=== PATIENT | female | born 1970 | race Caucasian/White ===

== ENCOUNTER → 2020-03-13 08:40 | Outpatient (BNVA) | payer OTHER, SELFPAY | PROVIDERS: Visit Provider Anesthesiology | DX: Z76.89 Persons encountering health services in other specified circumstances (principal) ==

== ENCOUNTER 2020-05-04 15:02 | Emergency (ER) | payer OTHER, SELFPAY ==
[2020-05-04 15:54] VITALS: BP 132/80; PULSE 70; RESP 16; TEMP 37.3; O2SAT 99; BMI 27.3
--- NOTE | 2020-05-04 16:59 | CT_ITS ---
EXAMINATION: CT ABDOMEN AND PELVIS WITHOUT CONTRAST CLINICAL INFORMATION: Lower abdominal pain, rule out ruptured appendix versus renal stone COMPARISON: CT of the abdomen and pelvis 05/18/2017 TECHNIQUE: Multidetector volumetric imaging was performed from the superior aspect of the liver through the pubic symphysis. Sagittal and coronal reformatted images were obtained on the technologist's workstation. This CT examination was performed using dose optimization techniques as appropriate, variously including the following: *Automated exposure control *Adjustment of mA and/or kV according to patient size (this includes techniques or standardized protocols for targeted exams where dose is matched to indication/reason for exam; i.e. extremities or head) *Use of iterative reconstruction technique DLP: 598 mGy-cm FINDINGS: LUNG BASES: The visualized lung bases are unremarkable. LIVER, GALLBLADDER, AND BILIARY TREE: The liver is normal in size, shape, and attenuation. No focal hepatic lesion or biliary ductal dilatation is present. The gallbladder is surgically absent. PANCREAS: Unremarkable. SPLEEN: Unremarkable. ADRENAL GLANDS: Unremarkable. KIDNEYS AND URETERS: The kidneys are normal in size, shape, and attenuation. No hydronephrosis, hydroureter, or calculi seen. No perinephric stranding. BLADDER: Unremarkable. GASTROINTESTINAL TRACT: The stomach and small bowel are not distended. No pericolonic inflammatory changes. Moderate amount of stool within the colon. Normal appendix. No surrounding inflammatory change in the right lower quadrant. ABDOMINAL WALL: No significant hernia is appreciated. LYMPH NODES: Normal. VASCULAR: Unremarkable. PELVIC VISCERA: There is an enlarged and irregular uterus with scattered calcifications likely secondary to fibroids. Findings are similar to the prior study. An intrauterine device is in place. OSSEOUS STRUCTURES: No acute or suspicious osseous abnormality. There are moderate degenerative changes at L5-S1. CT/CT abdomen pelvis wo con IMPRESSION: No acute intra-abdominal or intrapelvic process. Normal appendix. No evidence of bowel obstruction. Moderate amount of stool within the colon. No hydronephrosis. No renal or ureteral calculi. Enlarged fibroid uterus, similar in appearance to the prior study.
--- NOTE | 2020-05-04 17:03 | ED.ABDPAIN ---
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 Nothing makes the pain better, nothing makes the pain worse. Never had similar pain in the past. No UTI symptoms, and U no frequency, no dysuria. Normal bowel movement with no constipation, no diarrhea no blood in the stool. Related Data Previous Rx's Medication Instructions Recorded celecoxib 100 mg capsule 100 mg PO BID 30 Days #60 cap 03/13/20 Allergies Allergy/AdvReac Type Severity Reaction Status Date / Time mushroom Allergy Mild BECOMES Unverified 01/27/20 16:54 UNCONSIOUS amoxicillin [AMOXICILLIN] Allergy Unknown RASH Unverified 01/27/20 16:54 Review of Systems Review of Systems All other systems are reviewed and are negative Constitutional: Reports as per HPI and Reports no additional constitutional complaints Eyes: Reports as per HPI and Reports no additional eye complaints Reports system reviewed and no additional complaints, except as documented Cardiovascular: Reports as per HPI and Reports no additional cardiovascular complaints Respiratory: Reports as per HPI and Reports no additional respiratory complaints Gastrointestinal: Reports as per HPI and Reports no additional gastrointestinal complaints Genitourinary: Reports no additional female genitourinary complaints Musculoskeletal: Reports no additional musculoskeletal complaints Skin/Breast: Reports system reviewed and no additional complaints, except as docu Psychiatric: Reports no additional psychiatric complaints Endocrine: Reports no additional endocrine complaints Hematologic/Lymphatic: Reports no additional hematologic/lymphatic complaints Allergic/Immunologic: Reports no additional allergic/immunologic complaints Reports system reviewed and no additional complaints, except as documented and Reports Abnormal speech present Physical Exam Vital Signs: Vital Signs: Last Vital Signs Temp 99.1 F 05/04/20 15:54 Pulse 70 05/04/20 15:54 Resp 16 05/04/20 15:54 BP 132/80 05/04/20 15:54 Pulse Ox 99 05/04/20 15:54 Body Mass Index 27.3 Vital signs have been reviewed as normal and appeared to be correct. Blood pressure normal. Heart rate normal. Respiration rate normal. Temperature normal. Oxygen saturation normal. Appearance: Alert. Oriented X3. No acute distress. Head: Normal external exam. Normocephalic. Atraumatic. No Yun signs noted. No raccoon eyes noted Eyes: PERRLA. EOMI. Conjunctiva and sclera normal. Eyelids normal. ENT: EAC normal. TM's Normal. Pharynx normal. Uvula midline. Moist mucous membranes. No trismus noted. No drooling noted. No muffled voice noted. Neck: Normal inspection. Neck supple. FROM. No adenopathy. Thyroid Normal. No meningeal signs. No neck mass noted. CVS: Normal heart rate and rhythm. Heart sound normal. No murmurs noted. Pulses normal throughout. Respiratory: No respiratory distress. Painless inspiration. Breath sounds normal. No wheezes/rales/rhonchi noted. Chest nontender. No accessory muscle usage noted or decreased air movement noted. Abdomen: Soft and nontender. Bowel sounds normal in all 4 quadrants. No distention noted. No organomegaly noted. No visible injury noted. Back: No CVA tenderness. Full range of motion noted. Skin: Skin warm and dry. Normal skin color. Normal skin turgor. No rashes/lesions/lacerations noted. Extremities: No lower extremity edema. Extremities exhibit normal range of motion. Extremities nontender. Neuro: Oriented X 3. No motor deficit. No sensory deficit. Reflexes normal. MDM - Abdominal Pain MDM Narrative Medical decision making narrative: Assessment and plan. 50-year-old female came in with 3 days of abdominal pain, abdominal exam is remarkable for lower abdominal tenderness but no rebound no guarding, patient had a CT scan of the abdomen and pelvis which showed no acute intra-abdominal pathology, normal wbc's, otherwise unremarkable labs. Patient received in the emergency department 1 dose of morphine and Toradol and felt better with the medication. CT/lab finding were discussed with the patient, patient also was advised to drink plenty of fluids and follow-up with PCP. Lab Data Result diagrams: 05/04/20 17:18 05/04/20 17:18 Labs: Lab Results 05/04/20 05/04/20 05/04/20 Range/Units 17:18 17:18 17:18 WBC 7.0 (4.8-10.8) X10*3/uL RBC 3.79 L (4.20-5.50) X10*6/uL Hgb 12.3 (12.0-16.0) g/dl Hct 36.2 L (37-47) % MCV 95.5 (80-98) fL MCH 32.5 (27.0-33.0) pg MCHC 34.0 (31.0-35.0) g/dl RDW 12.2 (11.0-16.0) % Plt Count 310 (160-400) X10*3/uL MPV 10.5 (9.4-12.3) fL Immature Gran % (Auto) 0.3 (0.0-0.4) % Neut % (Auto) 61.4 (45-73) % Lymph % (Auto) 25.6 (20-40) % [place] % (Auto) 9.5 (2-11) % Eos % (Auto) 2.6 (0-4) % Baso % (Auto) 0.6 (0-2) % Lymph # (Auto) 1.8 (1.2-4.9) X10*3/uL [place] # (Auto) 0.7 (0.1-1.2) X10*3/uL Eos # (Auto) 0.2 (0.0-0.4) X10*3/uL Baso # (Auto) 0.0 (0.0-0.2) X10*3/uL Abs Immat Gran (auto) 0.02 (0.00-0.03) X10*3/uL Absolute Neuts (auto) 4.3 (2.0-8.3) X10*3/uL Absolute Nucleated RBC 0.000 (0.0-0.012) X10*3/uL Nucleated RBC % (auto) 0.0 (0.0-0.2) /100WBC Sodium 136 (135-145) mmol/L Potassium 3.5 (3.3-5.1) mmol/l Chloride 102 (96-108) mmol/L Carbon Dioxide 24 (22-29) mmol/L Anion Gap 14 (12-20) BUN 16 (9-16) mg/dL Creatinine 0.76 (0.5-1.4) mg/dL Estim Creat Clear Calc 72.8 Estimated GFR > 60 Random Glucose 94 (60-115) mg/dL Calcium 8.8 (8.4-10.2) mg/dL Total Bilirubin 0.6 (0.0-1.0) mg/dL Direct Bilirubin 0.2 (0.0-0.5) mg/dL AST 15 (5-31) U/L ALT 11 (0-31) U/L Alkaline Phosphatase 61 (39-117) U/L Total Protein 6.7 (6.5-8.0) g/dL Albumin 4.1 (3.5-5.0) g/dL Lipase 52 (8-78) U/L Urine Color Urine Appearance Urine pH (5.0-8.0) Ur Specific [place] (1.005-1.025) Urine Protein (NEG-TRACE) MG/DL Urine Glucose (UA) (NEG) MG/DL Urine Ketones (NEG) MG/DL Urine Blood (NEG) Urine Nitrite (NEG) Ur Leukocyte Esterase (NEG) Urine RBC (0) /HPF Urine WBC (0-4) /HPF Ur Squamous Epith Cells /LPF Urine Bacteria /LPF Urine Test NEGATIVE (NEGATIVE) 05/04/20 Range/Units 17:18 WBC (4.8-10.8) X10*3/uL RBC (4.20-5.50) X10*6/uL Hgb (12.0-16.0) g/dl Hct (37-47) % MCV (80-98) fL MCH (27.0-33.0) pg MCHC (31.0-35.0) g/dl RDW (11.0-16.0) % Plt Count (160-400) X10*3/uL MPV (9.4-12.3) fL Immature Gran % (Auto) (0.0-0.4) % Neut % (Auto) (45-73) % Lymph % (Auto) (20-40) % [place] % (Auto) (2-11) % Eos % (Auto) (0-4) % Baso % (Auto) (0-2) % Lymph # (Auto) (1.2-4.9) X10*3/uL [place] # (Auto) (0.1-1.2) X10*3/uL Eos # (Auto) (0.0-0.4) X10*3/uL Baso # (Auto) (0.0-0.2) X10*3/uL Abs Immat Gran (auto) (0.00-0.03) X10*3/uL Absolute Neuts (auto) (2.0-8.3) X10*3/uL Absolute Nucleated RBC (0.0-0.012) X10*3/uL Nucleated RBC % (auto) (0.0-0.2) /100WBC Sodium (135-145) mmol/L Potassium (3.3-5.1) mmol/l Chloride (96-108) mmol/L Carbon Dioxide (22-29) mmol/L Anion Gap (12-20) BUN (9-16) mg/dL Creatinine (0.5-1.4) mg/dL Estim Creat Clear Calc Estimated GFR Random Glucose (60-115) mg/dL Calcium (8.4-10.2) mg/dL Total Bilirubin (0.0-1.0) mg/dL Direct Bilirubin (0.0-0.5) mg/dL AST (5-31) U/L ALT (0-31) U/L Alkaline Phosphatase (39-117) U/L Total Protein (6.5-8.0) g/dL Albumin (3.5-5.0) g/dL Lipase (8-78) U/L Urine Color YELLOW Urine Appearance CLEAR Urine pH 6.5 (5.0-8.0) Ur Specific [place] <= 1.005 (1.005-1.025) Urine Protein NEG (NEG-TRACE) MG/DL Urine Glucose (UA) NEG (NEG) MG/DL Urine Ketones NEG (NEG) MG/DL Urine Blood TRACE (NEG) Urine Nitrite NEG (NEG) Ur Leukocyte Esterase NEG (NEG) Urine RBC 0-2 (0) /HPF Urine WBC 0 (0-4) /HPF Ur Squamous Epith Cells TRACE /LPF Urine Bacteria TRACE /LPF Urine Test (NEGATIVE) Imaging Data CT scan - abdomen: Radiologist's impression: IMPRESSION: No acute intra-abdominal or intrapelvic process. Normal appendix. No evidence of bowel obstruction. Moderate amount of stool within the colon. No hydronephrosis. No renal or ureteral calculi. Enlarged fibroid uterus, similar in appearance to the prior study. Discharge Plan Discharge Clinical Impression: Abdominal pain Qualifiers: Abdominal location: lower abdomen, unspecified Qualified Code(s): R10.30 - Lower abdominal pain, unspecified Patient Disposition: Home, Self-Care Instructions: Abdominal Pain (ED) Prescriptions: No Action celecoxib [Celebrex] 100 mg capsule 100 mg PO BID 30 Days Qty: 60 RF: 12 Referrals: Mary Ann Luke MD [Primary Care Provider] - 2 days [facility] Past Medical History Medical History Primary osteoarthritis, right shoulder Spondylosis of cervical region without myelopathy or radiculopathy Social History Social History Advance Directives: No Advance Directives Information Provided: Yes
[2020-05-04] MEDS: 0.9 % Sodium Chloride 1,000 ML 999 ML IVCONT (17:28)
[2020-05-04] MEDS: Morphine Sulfate 2 MG/ML CARTRIDGE 1 MG IVPUSH (17:29)
[2020-05-04] MEDS: Ketorolac Tromethamine 15 MG/ML VIAL IV (17:29)
[2020-05-04 17:43] LABS: Basophils Percent Auto 0.6 % (0-2); Eosinophils Absolute Auto 0.2 X10*3/uL (0.0-0.4); Eosinophils Percent Auto 2.6 % (0-4); Hematocrit 36.2 % (37-47); Hemoglobin 12.3 g/dl (12.0-16.0); Imm Gran Abs Auto 0.02 X10*3/uL (0.00-0.03); Imm Gran Pct Auto 0.3 % (0.0-0.4); Lymphocytes Absolute Auto 1.8 X10*3/uL (1.2-4.9); Lymphocytes Percent Auto 25.6 % (20-40); Mean Corpuscular Hemoglobin 32.5 pg (27.0-33.0); Mean Corpuscular Volume 95.5 fL (80-98); Mean Platelet Volume 10.5 fL (9.4-12.3); Monocytes Absolute Auto 0.7 X10*3/uL (0.1-1.2); Monocytes Percent Auto 9.5 % (2-11); Neutrophils Absolute Auto 4.3 X10*3/uL (2.0-8.3); Neutrophils Percent Auto 61.4 % (45-73); Platelet Count 310 X10*3/uL (160-400); Red Blood Count 3.79 X10*6/uL (4.20-5.50); Red Cell Distribution Width 12.2 % (11.0-16.0)
[2020-05-04 17:46] LABS: MANUAL DIFF FLAG NO
[2020-05-04 17:49] LABS: Glucose Urine UA NEG (NEG); Leukocyte Esterase Urine NEG (NEG); Nitrite Urine NEG (NEG); PH 6.5 (5.0-8.0); Specific Gravity - Urine <= 1.005 (1.005-1.025); Urine Blood TRACE (NEG); Urine Ketones NEG (NEG); Urine Protein NEG (NEG-TRACE)
[2020-05-04 17:53] LABS: Appearance Urine CLEAR; Color Urine YELLOW
[2020-05-04 17:55] LABS: UPreg QC Valid YES; Urine Pregnancy NEGATIVE (NEGATIVE)
[2020-05-04 18:01] LABS: Bacteria Urine TRACE /LPF; RBC Urine 0-2 /HPF (0); Squamous Epithelial Cell Urine TRACE /LPF; WBC Urine 0 /HPF (0-4)
[2020-05-04 18:26] LABS: Alanine Aminotransferase 11 U/L (0-31); Albumin Level 4.1 g/dL (3.5-5.0); Alkaline Phosphatase 61 U/L (39-117); Anion Gap 14 (12-20); Aspartate Amino Transferase 15 U/L (5-31); Bilirubin Direct 0.2 mg/dL (0.0-0.5); Bilirubin Total 0.6 mg/dL (0.0-1.0); Blood Urea Nitrogen 16 mg/dL (9-16); Calcium 8.8 mg/dL (8.4-10.2); Carbon Dioxide 24 mmol/L (22-29); Chloride 102 mmol/L (96-108); Creatinine Clr Calc Pharmacy 72.8; Estimated Glomerular Filt Rate > 60; Glucose Random 94 mg/dL (60-115); Lipase 52 U/L (8-78); Potassium 3.5 mmol/l (3.3-5.1); Sodium 136 mmol/L (135-145); Total Protein 6.7 g/dL (6.5-8.0)
== END 2020-05-04 19:27 | disposition home or self-care (01) ==
PROVIDERS: Emergency Provider Emergency Medicine; PCP Internal Medicine
DX: R10.30 Lower abdominal pain, unspecified (principal)
CPT/HCPCS: 36415; 74176; 80048; 80076; 81001; 81025; 83690; 85025; 96361; 96374; 96375; 99283; 99284; J1885; J2270

== ENCOUNTER → 2020-05-25 16:01 | Outpatient (BNVA) | payer OTHER, SELFPAY | PROVIDERS: PCP Internal Medicine; Visit Provider Anesthesiology | DX: Z76.89 Persons encountering health services in other specified circumstances (principal) ==

== ENCOUNTER 2020-07-18 15:33 | Outpatient (REF) | payer OTHER, SELFPAY ==
--- NOTE | ~2020-07-18 | XR_ITS ---
EXAMINATION: XR SHOULDER, RIGHT CLINICAL INFORMATION: Right shoulder pain. COMPARISON: Right shoulder radiographs dated 04/27/2009. TECHNIQUE: AP external rotation, Grashey, scapular Y, and axillary views of the right shoulder. FINDINGS: There is no acute fracture or dislocation. The acromioclavicular and glenohumeral joints are intact. A small subacromial spur is noted. The soft tissues are unremarkable. XR/XR shoulder RT min 2V IMPRESSION: Small subacromial spur without acute abnormality. No significant change.
== END 2020-07-18 15:34 | disposition home or self-care (01) ==
LOC: HO.XRAY 15:33
PROVIDERS: PCP Internal Medicine; Visit Provider Anesthesiology
DX: M19.011 Primary osteoarthritis, right shoulder (principal)
CPT/HCPCS: 73030

== ENCOUNTER → 2020-07-31 13:43 | Outpatient (BNVA) | payer OTHER, SELFPAY | PROVIDERS: PCP Internal Medicine; Visit Provider Anesthesiology ==

== ENCOUNTER 2020-08-18 19:27 | Emergency (ER) | payer OTHER, SELFPAY ==
[2020-08-18 19:40] VITALS: BP 131/91; PULSE 82; RESP 18; TEMP 36.9; O2SAT 100; BMI 28.7
[2020-08-18 20:03] LABS: MANUAL DIFF FLAG NO
[2020-08-18 20:09] LABS: Basophils Percent Auto 0.6 % (0-2); Eosinophils Absolute Auto 0.2 X10*3/uL (0.0-0.4); Eosinophils Percent Auto 2.1 % (0-4); Hematocrit 38.5 % (37-47); Hemoglobin 12.9 g/dl (12.0-16.0); Imm Gran Abs Auto 0.02 X10*3/uL (0.00-0.03); Imm Gran Pct Auto 0.3 % (0.0-0.4); Lymphocytes Absolute Auto 1.8 X10*3/uL (1.2-4.9); Lymphocytes Percent Auto 25.2 % (20-40); Mean Corpuscular HGB Conc 33.5 g/dl (31.0-35.0); Mean Corpuscular Hemoglobin 32.2 pg (27.0-33.0); Mean Platelet Volume 10.6 fL (9.4-12.3); Monocytes Absolute Auto 0.6 X10*3/uL (0.1-1.2); Neutrophils Absolute Auto 4.7 X10*3/uL (2.0-8.3); Neutrophils Percent Auto 63.8 % (45-73); Platelet Count 309 X10*3/uL (160-400); Red Blood Count 4.01 X10*6/uL (4.20-5.50); Red Cell Distribution Width 12.2 % (11.0-16.0); White Blood Count 7.3 X10*3/uL (4.8-10.8)
[2020-08-18 20:10] LABS: Glucose Urine UA NEG (NEG); Leukocyte Esterase Urine NEG (NEG); Nitrite Urine NEG (NEG); Urine Blood NEG (NEG); Urine Ketones NEG (NEG); Urine Protein NEG (NEG-TRACE)
[2020-08-18 20:11] LABS: Appearance Urine CLEAR; Color Urine YELLOW
[2020-08-18 20:30] LABS: Alanine Aminotransferase 16 U/L (0-31); Albumin Level 4.4 g/dL (3.5-5.0); Alkaline Phosphatase 79 U/L (39-117); Anion Gap 14 (12-20); Aspartate Amino Transferase 13 U/L (5-31); Bilirubin Direct 0.2 mg/dL (0.0-0.5); Bilirubin Total 0.6 mg/dL (0.0-1.0); Blood Urea Nitrogen 19 mg/dL (9-16); Calcium 9.5 mg/dL (8.4-10.2); Carbon Dioxide 25 mmol/L (22-29); Chloride 105 mmol/L (96-108); Creatinine Clr Calc Pharmacy 67.5; Estimated Glomerular Filt Rate > 60; Glucose Random 97 mg/dL (60-115); Lipase 34 U/L (8-78); Potassium 3.6 mmol/L (3.3-5.1); Sodium 140 mmol/L (135-145); Total Protein 7.2 g/dL (6.5-8.0)
[2020-08-18 21:28] VITALS: BP 128/83; PULSE 77; RESP 16; TEMP 36.8; O2SAT 100
--- NOTE | 2020-08-18 22:09 | ED.ABDPAIN ---
HPI - Abdominal Pain General Chief Complaint: Abdominal Pain Stated Complaint: epigastric pain Time Seen by Provider: 08/18/20 22:09 Source: patient and family () Mode of arrival: ambulatory History of Present Illness HPI narrative: This is a 50-year-old female who is currently being treated for GERD with omeprazole in presents with 4-5 days of epigastric discomfort associated with a bad taste in her mouth as well as nausea but denies any fevers, chills, diarrhea, urinary pain/burning/frequency. Patient states that this discomfort that she has been experiencing decreases her appetite and that when she eats it feels uncomfortable. Otherwise, she denies any melena or hematochezia. Related Data Previous Rx's Medication Instructions Recorded tizanidine 4 mg tablet 4 mg PO Q8H PRN #90 tab 07/31/20 sucralfate [Carafate] 10 ml PO BID 14 Days #280 ml 08/18/20 Allergies Allergy/AdvReac Type Severity Reaction Status Date / Time mushroom Allergy Mild BECOMES Verified 07/31/20 13:44 UNCONSIOUS amoxicillin [AMOXICILLIN] Allergy Unknown RASH Verified 07/31/20 13:44 Review of Systems Review of Systems Pertinent positives and negatives as stated in HPI 10 point review of systems is otherwise negative. Physical Exam Vital Signs: Vital Signs: Last Vital Signs Temp 98.3 F 08/18/20 21:28 Pulse 77 08/18/20 21:28 Resp 16 08/18/20 21:28 BP 128/83 08/18/20 21:28 Pulse Ox 100 08/18/20 21:28 Body Mass Index 28.7 VITAL SIGNS: Reviewed. GENERAL: Well developed, well nourished, in no acute distress. HEAD: Normocephalic/atraumatic NOSE: Nares patent bilateral OROPHARYNX: no oral lesions noted, posterior pharynx clear NECK: Supple, no adenopathy LUNGS: Normal breath sounds. SpO2<100> CARDIOVASCULAR: Regular rate and rhythm without noted murmurs ABDOMEN: Soft, mild tenderness to palpation in the epigastrium without rebound, non-distended with bowel sounds. NEUROLOGIC: Alert and oriented x 4. Course Course Course Narrative: This is a 50-year-old female with history and clinical presentation suggestive of possible ulcer/gastritis as patient states that she is compliant with her current omeprazole regimen. Patient will be provided with a GI cocktail as well as care. Here in the emergency department. Review of all investigations is otherwise negative for any acute findings such as infection or acute anemia MDM - Abdominal Pain Lab Data Result diagrams: 08/18/20 19:51 08/18/20 19:51 Labs: Lab Results 08/18/20 08/18/20 08/18/20 Range/Units 19:51 19:51 19:57 WBC 7.3 (4.8-10.8) X10*3/uL RBC 4.01 L (4.20-5.50) X10*6/uL Hgb 12.9 (12.0-16.0) g/dl Hct 38.5 (37-47) % MCV 96.0 (80-98) fL MCH 32.2 (27.0-33.0) pg MCHC 33.5 (31.0-35.0) g/dl RDW 12.2 (11.0-16.0) % Plt Count 309 (160-400) X10*3/uL MPV 10.6 (9.4-12.3) fL Immature Gran % (Auto) 0.3 (0.0-0.4) % Neut % (Auto) 63.8 (45-73) % Lymph % (Auto) 25.2 (20-40) % [place] % (Auto) 8.0 (2-11) % Eos % (Auto) 2.1 (0-4) % Baso % (Auto) 0.6 (0-2) % Lymph # (Auto) 1.8 (1.2-4.9) X10*3/uL [place] # (Auto) 0.6 (0.1-1.2) X10*3/uL Eos # (Auto) 0.2 (0.0-0.4) X10*3/uL Baso # (Auto) 0.0 (0.0-0.2) X10*3/uL Abs Immat Gran (auto) 0.02 (0.00-0.03) X10*3/uL Absolute Neuts (auto) 4.7 (2.0-8.3) X10*3/uL Absolute Nucleated RBC 0.000 (0.0-0.012) X10*3/uL Nucleated RBC % (auto) 0.0 (0.0-0.2) /100WBC Sodium 140 (135-145) mmol/L Potassium 3.6 (3.3-5.1) mmol/L Chloride 105 (96-108) mmol/L Carbon Dioxide 25 (22-29) mmol/L Anion Gap 14 (12-20) BUN 19 H (9-16) mg/dL Creatinine 0.84 (0.5-1.4) mg/dL Estim Creat Clear Calc 67.5 Estimated GFR > 60 Random Glucose 97 (60-115) mg/dL Calcium 9.5 D (8.4-10.2) mg/dL Total Bilirubin 0.6 (0.0-1.0) mg/dL Direct Bilirubin 0.2 (0.0-0.5) mg/dL AST 13 (5-31) U/L ALT 16 (0-31) U/L Alkaline Phosphatase 79 D (39-117) U/L Total Protein 7.2 (6.5-8.0) g/dL Albumin 4.4 (3.5-5.0) g/dL Lipase 34 (8-78) U/L Urine Color YELLOW Urine Appearance CLEAR Urine pH 7.0 (5.0-8.0) Ur Specific [place] 1.010 (1.005-1.025) Urine Protein NEG (NEG-TRACE) MG/DL Urine Glucose (UA) NEG (NEG) MG/DL Urine Ketones NEG (NEG) MG/DL Urine Blood NEG (NEG) Urine Nitrite NEG (NEG) Ur Leukocyte Esterase NEG (NEG) Discharge Plan Discharge Clinical Impression: Epigastric abdominal pain Patient Disposition: Home, Self-Care Instructions: Gastritis (ED), Diet for Stomach Ulcers and Gastritis (ED) Additional Instructions: Resume all home medications as prescribed. Please return to the emergency department should you experience acute worsening of your symptoms. Prescriptions: New sucralfate [Carafate] 100 mg/mL suspension 10 ml PO BID 14 Days Qty: 280 RF: 0 No Action tizanidine 4 mg tablet 4 mg PO Q8H PRN (Reason: muscle spasticity) Qty: 90 RF: 8 Referrals: Mary Ann Luke MD [Primary Care Provider] - 2 days (Re-evaluate after being seen in the emergency department with suspected gastritis versus possible developing ulcer. Patient was started on Carafate and stated she is already taking omeprazole.) [facility] Past Medical History Source: nursing notes reviewed Medical History Spondylosis of cervical region without myelopathy or radiculopathy Social History Social History Alcohol intake: never Smoking Status: Never smoker Use of substances other than those prescribed or required for medical reasons: No Advance Directives: No Advance Directives Information Provided: Yes
[2020-08-18] MEDS: Sucralfate Oral Suspension 1 GM/10 ML ORAL.SUSP PO (22:30)
[2020-08-18] MEDS: Lidocaine HCl Viscous 2 % 15 ML SOLUTION 10 ML MUCOUS MEM (22:32)
[2020-08-18] MEDS: Magnesium Hydrox/Alum Hydrox 30 ML ORAL.SUSP PO (22:32)
== END 2020-08-18 23:08 | disposition home or self-care (01) ==
PROVIDERS: Emergency Provider Student in an Organized Health Care Education/Training Program; PCP Internal Medicine
DX: R10.13 Epigastric pain (principal); K21.9 Gastro-esophageal reflux disease without esophagitis
CPT/HCPCS: 36415; 80048; 80076; 81003; 83690; 85025; 99283; 99284

== ENCOUNTER 2020-08-28 11:46 | Emergency (ER) | payer OTHER, SELFPAY ==
[2020-08-28 11:58] VITALS: BP 127/82; PULSE 72; RESP 16; TEMP 36.3; O2SAT 99; BMI 28.9
--- NOTE | 2020-08-28 12:16 | ED_ITS ---
HPI - Extremity Injury (Lower) General Chief Complaint: Extremity Injury, Lower Stated Complaint: R KNEE PAIN Time Seen by Provider: 08/28/20 12:07 Source: patient Mode of arrival: ambulatory History of Present Illness HPI Narrative: 50-year-old female with a past medical history of cervical spondylosis, arthritis presenting to the ED complaining of right knee pain since last night s/p moving wrong in bed. Reports twisting injury, denies direct injury/trauma or falls. Reports pain radiates up to his thigh. Denies numbness, tingling, weakness, back pain, fever, chills. Reports acute on chronic knee pain in which she receives scheduled cortisone injections complaint: knee injury Related Data Previous Rx's Medication Instructions Recorded tizanidine 4 mg tablet 4 mg PO Q8H PRN #90 tab 07/31/20 sucralfate [Carafate] 10 ml PO BID 14 Days #280 ml 08/18/20 acetaminophen [Tylenol Extra 500 mg PO Q6H PRN #20 tab 08/28/20 Strength] cyclobenzaprine 5 mg PO Q8H PRN 5 Days #14 tab 08/28/20 lidocaine [Lidoderm] 1 patch TOPICAL DAILY PRN #30 ea 08/28/20 MDD remove after 12 hours naproxen 500 mg PO BID PRN 10 Days #20 tab 08/28/20 Allergies Allergy/AdvReac Type Severity Reaction Status Date / Time mushroom Allergy Mild BECOMES Verified 08/28/20 12:04 UNCONSIOUS amoxicillin [AMOXICILLIN] Allergy Unknown RASH Verified 08/28/20 12:04 Review of Systems Review of Systems: Constitutional: No Fever, No Chills Musculoskeletal: + joint pain, No Myalgias, No Joint Swelling Skin: No Skin Lesions, No rash Neuro: No Weakness, No Numbness, No Paresthesias Yes all other systems are reviewed and are negative [facility] Past Medical History Attestation statement: The following information was validated with the patient. Medical History Spondylosis of cervical region without myelopathy or radiculopathy Social History Social History Alcohol intake: never Smoking Status: Never smoker Advance Directives: No Advance Directives Information Provided: No Physical Exam Vital Signs: Vital Signs: Last Vital Signs Temp 97.3 F 08/28/20 11:58 Pulse 72 08/28/20 11:58 Resp 16 08/28/20 11:58 BP 127/82 08/28/20 11:58 Pulse Ox 99 08/28/20 11:58 Body Mass Index 28.9 Const: General: cooperative and healthy appearing Orientation/cons ciousness: patient oriented x3 Limitations: no limitations HENMT: Head: Yes normal to inspection Ears: hearing grossly normal bilaterally General nose exam: Normal external nose present Face and sinus: Yes normal facial exam Eyes: General: appearance normal, both eyes and all related structures EOM: EOMs intact bilaterally Neck: Neck: Yes no meningeal signs Resp: Effort & Inspection: normal respiratory effort Cardio: Rate: regular rate Peripheral pulses: dorsalis pedis present GI: Inspection: Yes normal to inspection Back/Spine/Pelvis: Other: No midline thoracic/lumbar spinous tenderness/ stepoffs Skin: Rashes: no rashes Wounds: no wounds Neuro: General: patient oriented x3, tone normal, moves all extremities and no meningeal signs Extrem: Other: Right knee with slight swelling, +ttp to medial aspect. no deformity/ecchymosis or erythema. Pain with passive ROM. NV intact distally MDM - Extremity Injury (Lower) MDM Narrative Medical decision making narrative: On exam VSS, NAD, well appearing, PE as above. Likely ligamentous/tendon injury or MSK pain. Low concern for fracture/dislocation No known injury trauma, no need for x-ray at this time Medical Records Attestation: I reviewed the patient's medical records. Discharge Plan Discharge Clinical Impression: Knee pain Patient Disposition: Home, Self-Care Instructions: Knee Pain (ED) Additional Instructions: You likely have a ligamental/tendon injury Your pain is likely musculoskeletal Flexeril is a muscle relaxer, take at night as it makes you drowsy, do not drive, drink alcohol, or operate machinery while taking it Naproxen as an anti-inflammatory / pain medication, take with food Lidoderm patches are numbing patches, apply to painful area In addition take Tylenol at home If symptoms persist or worsen, pain becomes unbearable, you developed urinary retention or incontinence, or weakness return to the ED Follow-up with her doctor and Orthopedics as needed Prescriptions: New acetaminophen [Tylenol Extra Strength] 500 mg tablet 500 mg PO Q6H PRN (Reason: pain or fever) Qty: 20 RF: 0 lidocaine [Lidoderm] 5 % adhesive patch,medicated 1 patch topical DAILY MDD remove after 12 hours PRN (Reason: pain) Qty: 30 RF: 0 naproxen 500 mg tablet 500 mg PO BID PRN (Reason: pain) 10 Days Qty: 20 RF: 0 cyclobenzaprine 5 mg tablet 5 mg PO Q8H PRN (Reason: pain (scale score 7-10)) 5 Days Qty: 14 RF: 0 No Action sucralfate [Carafate] 100 mg/mL suspension 10 ml PO BID 14 Days Qty: 280 RF: 0 tizanidine 4 mg tablet 4 mg PO Q8H PRN (Reason: muscle spasticity) Qty: 90 RF: 8 Referrals: Jose Luis Arnold MD [Physician] - 1 week
[2020-08-28] MEDS: Ketorolac Tromethamine 15 MG/ML VIAL IM (12:31)
[2020-08-28] MEDS: Cyclobenzaprine HCl 5 MG TABLET PO (12:31)
== END 2020-08-28 13:21 | disposition home or self-care (01) ==
PROVIDERS: Emergency Provider Emergency Medicine
DX: M25.561 Pain in right knee (principal); Z79.899 Other long term (current) drug therapy
CPT/HCPCS: 96372; 99284; J1885

== ENCOUNTER → 2020-09-29 13:28 | Day surgery (SDC) | payer OTHER, SELFPAY ==
--- NOTE | 2020-09-27 12:37 | P.CONAN_ITS ---
HPI - Anesthesia Eval Consult details Narrative: 50yo F for Bilateral C4-C5-C6 Medial Branch Blocks PMFSH Active Problems Active Problems: All Active Problems (Updated 09/25/20 @ 10:56 by Crystal Willis ) Spondylosis of cervical region without myelopathy or radiculopathy (Acute) Past Medical History Medical History (Updated 09/25/20 @ 10:56 by Crystal Willis) Anxiety Depression Fibromyalgia GERD (gastroesophageal reflux disease) HTN (hypertension) Hypothyroid Migraine headache Spondylosis of cervical region without myelopathy or radiculopathy Tension headache Social History Social History Alcohol intake: never Smoking Status: Never smoker Advance Directives: No Advance Directives Information Provided: No Patient : No Meds Allergies Allergy/AdvReac Type Severity Reaction Status Date / Time mushroom Allergy Mild BECOMES Verified 09/25/20 10:47 UNCONSIOUS amoxicillin [AMOXICILLIN] Allergy Unknown RASH Verified 09/25/20 10:47 Home Medications Medication Instructions Recorded Confirmed Last Taken Type cyanocobalamin (vitamin B-12) 1 tab PO DAILY 09/25/20 09/25/20 Unknown History cyclosporine [Restasis] 1 drp OPHTHALMIC (EYE) BID 09/25/20 09/25/20 Unknown History fluoxetine 10 mg PO Q OTHER DAY 09/25/20 09/25/20 Unknown History levothyroxine 1 tab PO DAILY 09/25/20 09/25/20 Unknown History lisinopril-hydrochlorothiazide 1 tab PO DAILY 09/25/20 09/25/20 Unknown History lorazepam [Ativan] 1 - 2 tab PO DAILY PRN 09/25/20 09/25/20 Unknown History omeprazole 1 tab PO BID 09/25/20 09/25/20 Unknown History ondansetron HCl 1 tab PO Q8H PRN 09/25/20 09/25/20 Unknown History sertraline [Zoloft] 1 tab PO BEDTIME 09/25/20 09/25/20 Unknown History sumatriptan succinate 1 tab PO DAILY PRN 09/25/20 09/25/20 Unknown History topiramate 1 tab PO BEDTIME 09/25/20 09/25/20 Unknown History Exam Exam Date and Time: September 27, 2020 1237 Pertinent Lab Results Pertinent Lab Results: Laboratory Tests 04/09/21 04/09/21 19:51 19:51 WBC 7.3 Hgb 12.9 Hct 38.5 Plt Count 309 Sodium 140 Potassium 3.6 Chloride 105 Carbon Dioxide 25 BUN 19 H Creatinine 0.84 Assessment and Plan Assessment Anesthesia Assessment: Chart Reviewed
[2020-09-29 13:58] VITALS: BMI 27.9
--- NOTE | 2020-09-29 14:02 | P.BOP_ITS ---
Brief Operative Note Surgeon: Samuel Liao MD Was an Oyster Tonger used for this Procedure?: No
--- NOTE | 2020-09-29 14:02 | PM.OP ---
Brief Operative Note Surgeon: Samuel Liao MD Was an Golf Course Designer used for this Procedure?: No
--- NOTE | 2020-09-29 14:02 | W.PM.OPN ---
Operative Note Operative Note Date of Service: 09/29/20
--- NOTE | 2020-09-29 14:03 | MHC.SHP ---
Pre-Procedural Eval Section A The patient is an INPATIENT: No Changes since office visit: Yes Patient answered all questions The History & Physical has been completed within 30 days and I have reviewed it.: No Section B Chief Complaint: Spondylosis of cervical region Details of Present Illness: as above Relevant Family History (Specify if Yes): No Relevant Social History: None Present Medications: see Short Stay Collaborative assessment Medical History: No relevant PMH History of Previous Operations: No relevant previous surgery Allergies: Allergies Allergy/AdvReac Type Severity Reaction Status Date / Time mushroom Allergy Mild BECOMES Verified 09/25/20 10:47 UNCONSIOUS amoxicillin [AMOXICILLIN] Allergy Unknown RASH Verified 09/25/20 10:47 Review of Systems Sugical H&P ROS: Negative: Constitution, Cardiovascular, Respiratory, Neurological, Psychiatric, Hem-Onc, Allergic/Immunologic, Gastrointestinal, Genitourinary, Musculoskeletal, Integumentary, Endocrine and Eyes/Ears/Nose/Throat Exam Surgical H&P Exam: Normal: HEENT, Normal: Heart, Normal: Lungs, Normal: Extremities, Normal: Abdomen, Normal: Skin and Normal: Neurological Plan Diagnosis/Plan: Unchanged I have reviewed the history and physical and performed a pertinent physical examination on my patient. No changes have occurred unless specified.
[2020-09-29 14:13] VITALS: BP 128/71; PULSE 76; RESP 16; TEMP 37.2; O2SAT 100
--- NOTE | 2020-09-29 14:30 | P.CONAN_ITS ---
[facility] Active Problems Active Problems: All Active Problems (Updated 09/25/20 @ 10:56 by Crystal spann) Spondylosis of cervical region without myelopathy or radiculopathy (Acute) Past Medical History Medical History Anxiety Depression Fibromyalgia GERD (gastroesophageal reflux disease) HTN (hypertension) Hypothyroid Migraine headache Spondylosis of cervical region without myelopathy or radiculopathy Tension headache Social History Social History Alcohol intake: never Smoking Status: Never smoker Use of substances other than those prescribed or required for medical reasons: No Are you DNR?: No Advance Directives: No Advance Directives Information Provided: Yes Meds Allergies Allergy/AdvReac Type Severity Reaction Status Date / Time mushroom Allergy Mild BECOMES Verified 09/25/20 10:47 UNCONSIOUS amoxicillin [AMOXICILLIN] Allergy Unknown RASH Verified 09/25/20 10:47 Active Medications: Current Medications Generic Name Dose Route Start Last Admin Trade Name Antony PRN Reason Stop Dose Admin Lactated Ringer's 1,000 mls @ 100 mls/hr 09/29/20 14:00 Lr IVCONT .Q10H KRISHNA Home Medications Medication Instructions Recorded Confirmed Last Taken Type cyanocobalamin (vitamin B-12) 1 tab PO DAILY 09/25/20 09/25/20 Unknown History cyclosporine [Restasis] 1 drp OPHTHALMIC (EYE) BID 09/25/20 09/25/20 Unknown History fluoxetine 10 mg PO Q OTHER DAY 09/25/20 09/25/20 Unknown History levothyroxine 1 tab PO DAILY 09/25/20 09/25/20 09/29/20 History lisinopril-hydrochlorothiazide 1 tab PO DAILY 09/25/20 09/25/20 Unknown History lorazepam [Ativan] 1 - 2 tab PO DAILY PRN 09/25/20 09/25/20 09/29/20 History omeprazole 1 tab PO BID 09/25/20 09/25/20 09/29/20 History ondansetron HCl 1 tab PO Q8H PRN 09/25/20 09/25/20 Unknown History sertraline [Zoloft] 1 tab PO BEDTIME 09/25/20 09/25/20 09/29/20 History sumatriptan succinate 1 tab PO DAILY PRN 09/25/20 09/25/20 Unknown History topiramate 1 tab PO BEDTIME 09/25/20 09/25/20 09/29/20 History Exam Exam Date and Time: September 29, 2020 1430 Height,Weight and Vital Signs: Height 5 ft 1 in Weight 67.132 kg Last Vital Signs Temp 98.9 F 09/29/20 14:13 Pulse 76 09/29/20 14:13 Resp 16 09/29/20 14:13 BP 128/71 09/29/20 14:13 Pulse Ox 100 09/29/20 14:13 Airway Mallampati Class: II TM Dist: >3cm Neck ROM: Full Heart: RRR Lungs: CTA
--- NOTE | 2020-09-29 14:37 | PC.NURSE ---
Patients intake completed using [employer] (Bud # [id number]) due to language barrier, requested language Yoruba. Patient became increasingly anxious throughout intake and began crying and holding head. Patient unsure about signing surgical consent and very nervous for procedure. All questions answered at length. Dr. Liao called to bedside and also spoke to patient via remote sensing advisor phone at length about risks and benefits of surgery. Patient decided against surgery, stating that this was not the right time for her. Patient left [facility]SS preop, 1440.
== END ==
PROVIDERS: Visit Provider Anesthesiology
DX: M47.812 Spondylosis without myelopathy or radiculopathy, cervical region (principal); Z53.8 Procedure and treatment not carried out for other reasons
CPT/HCPCS: J2250; J3010; J3300; Q9967

== ENCOUNTER → 2020-11-01 13:01 | Outpatient (BNVA) | payer OTHER, SELFPAY | PROVIDERS: Visit Provider Anesthesiology ==

== ENCOUNTER 2021-01-20 16:33 | Emergency (ER) | payer OTHER, SELFPAY ==
[2021-01-20 19:44] VITALS: BP 119/64; PULSE 83; RESP 18; TEMP 36.9; O2SAT 98; BMI 28.5
== END 2021-01-20 21:00 | disposition left against medical advice (07) ==
PROVIDERS: Emergency Provider Emergency Medicine; PCP Internal Medicine
DX: R10.9 Unspecified abdominal pain (principal)
CPT/HCPCS: 99281; 99282

== ENCOUNTER 2021-01-26 18:07 | Emergency (ER) | payer OTHER, SELFPAY ==
--- NOTE | ~2021-01-26 | CT_ITS ---
EXAMINATION: CT ABDOMEN AND PELVIS WITHOUT CONTRAST CLINICAL INFORMATION: Pain. Concern for colitis. COMPARISON: CT scan abdomen pelvis May 04, 2020 TECHNIQUE: Multidetector volumetric imaging was performed from the superior aspect of the liver through the pubic symphysis. Sagittal and coronal reformatted images were obtained on the technologist's workstation. This CT examination was performed using dose optimization techniques as appropriate, variously including the following: *Automated exposure control *Adjustment of mA and/or kV according to patient size (this includes techniques or standardized protocols for targeted exams where dose is matched to indication/reason for exam; i.e. extremities or head) *Use of iterative reconstruction technique DLP: 545 mGy-cm FINDINGS: LUNG BASES: The visualized lung bases are unremarkable. LIVER, GALLBLADDER, AND BILIARY TREE: The liver is normal in size, shape, and attenuation. No focal hepatic lesion or biliary ductal dilatation is present. Status post cholecystectomy PANCREAS: Unremarkable. SPLEEN: Unremarkable. ADRENAL GLANDS: Unremarkable. KIDNEYS AND URETERS: The kidneys are normal in size, shape, and attenuation. No hydronephrosis, hydroureter, or calculi seen. No perinephric stranding. BLADDER: Unremarkable. GASTROINTESTINAL TRACT: The small and large bowel are unremarkable. The appendix is unremarkable. ABDOMINAL WALL: No significant hernia is appreciated. LYMPH NODES: Normal. VASCULAR: Unremarkable. PELVIC VISCERA: Uterus is lobular and enlarged due to multiple fibroids. There are coarse calcifications associated with a fibroid at the fundus. IUD in the endometrial cavity. No adnexal abnormality. OSSEOUS STRUCTURES: Vacuum disc changes and vertebral endplate spur at lumbosacral junction. CT/CT abdomen pelvis wo con IMPRESSION: 1. No acute abnormality CT scan abdomen pelvis. 2. Enlarged fibroid uterus. IUD in endometrial cavity.
[2021-01-26 19:49] VITALS: BP 120/83; PULSE 74; RESP 16; TEMP 36.1; O2SAT 99; BMI 28.3
[2021-01-26 20:00] VITALS: BP 122/81; PULSE 60; RESP 16; TEMP 36.8; O2SAT 99
[2021-01-26 20:41] LABS: MANUAL DIFF FLAG NO
[2021-01-26 20:42] LABS: Basophils Percent Auto 0.5 % (0-2); Eosinophils Absolute Auto 0.2 X10*3/uL (0.0-0.4); Eosinophils Percent Auto 1.7 % (0-4); Hemoglobin 12.3 g/dl (12.0-16.0); Imm Gran Abs Auto 0.03 X10*3/uL (0.00-0.03); Imm Gran Pct Auto 0.3 % (0.0-0.4); Lymphocytes Absolute Auto 1.9 X10*3/uL (1.2-4.9); Lymphocytes Percent Auto 21.3 % (20-40); Mean Corpuscular HGB Conc 35.1 g/dl (31.0-35.0); Mean Corpuscular Hemoglobin 33.4 pg (27.0-33.0); Mean Corpuscular Volume 95.1 fL (80-98); Monocytes Absolute Auto 0.8 X10*3/uL (0.1-1.2); Monocytes Percent Auto 9.6 % (2-11); Neutrophils Absolute Auto 5.9 X10*3/uL (2.0-8.3); Neutrophils Percent Auto 66.6 % (45-73); Platelet Count 273 X10*3/uL (160-400); Red Blood Count 3.68 X10*6/uL (4.20-5.50); White Blood Count 8.8 X10*3/uL (4.8-10.8)
[2021-01-26 21:00] LABS: Alanine Aminotransferase 16 U/L (0-31); Alkaline Phosphatase 57 U/L (39-117); Aspartate Amino Transferase 15 U/L (5-31); Bilirubin Direct 0.2 mg/dL (0.0-0.5); Bilirubin Total 0.6 mg/dL (0.0-1.0); Lipase 34 U/L (8-78); Total Protein 6.3 g/dL (6.5-8.0)
[2021-01-26 21:01] LABS: Alanine Aminotransferase 16 U/L (0-31); Alkaline Phosphatase 57 U/L (39-117); Anion Gap 10 (12-20); Appearance Urine CLEAR; Aspartate Amino Transferase 14 U/L (5-31); Bilirubin Total 0.6 mg/dL (0.0-1.0); Blood Urea Nitrogen 15 mg/dL (9-16); Calcium 9.2 mg/dL (8.4-10.2); Carbon Dioxide 25 mmol/L (22-29); Chloride 106 mmol/L (96-108); Color Urine YELLOW; Creatinine Clr Calc Pharmacy 75.1; Estimated Glomerular Filt Rate > 60; Glucose Random 103 mg/dL (60-115); Glucose Urine UA NEG (NEG); Leukocyte Esterase Urine NEG (NEG); Nitrite Urine NEG (NEG); Sodium 138 mmol/L (135-145); Specific Gravity - Urine 1.015 (1.005-1.025); Total Protein 6.3 g/dL (6.5-8.0); UACC Culture Trigger NO; Urine Blood 1+ (NEG); Urine Ketones NEG (NEG); Urine Protein NEG (NEG-TRACE)
[2021-01-26 21:32] LABS: Squamous Epithelial Cell Urine 1+ /LPF
--- NOTE | 2021-01-26 21:33 | ED_ITS ---
HPI - Abdominal Pain General Chief Complaint: Abdominal Pain Stated Complaint: constipation Time Seen by Provider: 01/26/21 21:32 Source: patient and family Mode of arrival: ambulatory Limitations: no limitations History of Present Illness HPI narrative: 50-year-old female with history of chronic abdominal pain pres ented with acute on chronic abdominal pain started since yesterday, pain is chronic but worsening since yesterday, patient has constant associated with nausea and vomiting and nonbloody watery diarrhea, patient describes pain as mild diffuse abdominal pain, no urinary symptoms, no fever, no chills. Patient with a history of cholecystectomy done at [facility] few years ago. Patient also has been evaluated for chronic abdominal pain by reproducer had multiple colonoscopy and upper endoscopy reportedly was unremarkable. Related Data Home Medications Medication Instructions Recorded Confirmed cyanocobalamin (vitamin B-12) 1 tab PO DAILY 09/25/20 09/25/20 1,000 mcg tablet cyclosporine 0.05 % eye drops in a 1 drp OPHTHALMIC (EYE) BID 09/25/20 09/25/20 dropperette (Restasis) fluoxetine 10 mg capsule 10 mg PO Q OTHER DAY 09/25/20 09/25/20 levothyroxine 75 mcg tablet 1 tab PO DAILY 09/25/20 09/25/20 lisinopril 10 1 tab PO DAILY 09/25/20 09/25/20 mg-hydrochlorothiazide 12.5 mg tablet lorazepam 0.5 mg tablet (Ativan) 1 - 2 tab PO DAILY PRN 09/25/20 09/25/20 omeprazole 20 mg tablet,delayed 1 tab PO BID 09/25/20 09/25/20 release ondansetron HCl 4 mg tablet 1 tab PO Q8H PRN 09/25/20 09/25/20 sertraline 25 mg tablet (Zoloft) 1 tab PO BEDTIME 09/25/20 09/25/20 sumatriptan succinate 50 mg tablet 1 tab PO DAILY PRN 09/25/20 09/25/20 topiramate 25 mg tablet 1 tab PO BEDTIME 09/25/20 09/25/20 Previous Rx's Medication Instructions Recorded tizanidine 4 mg tablet 4 mg PO Q8H PRN #90 tab 07/31/20 sucralfate 100 mg/mL oral 10 ml PO BID 14 Days #280 ml 04/09/21 suspension (Carafate) acetaminophen 500 mg tablet 500 mg PO Q6H PRN #20 tab 08/28/20 (Tylenol Extra Strength) cyclobenzaprine 5 mg tablet 5 mg PO Q8H PRN 5 Days #14 tab 08/28/20 lidocaine 5 % topical patch 1 patch TOPICAL DAILY PRN #30 ea 08/28/20 (Lidoderm) MDD remove after 12 hours naproxen 500 mg tablet 500 mg PO BID PRN 10 Days #20 tab 08/28/20 Allergies Allergy/AdvReac Type Severity Reaction Status Date / Time mushroom Allergy Mild BECOMES Verified 11/01/20 13:07 UNCONSIOUS amoxicillin [AMOXICILLIN] Allergy Unknown RASH Verified 11/01/20 13:07 Review of Systems Review of Systems All other systems are reviewed and are negative Constitutional: Reports as per HPI and Reports no additional constitutional complaints Eyes: Reports as per HPI and Reports no additional eye complaints Reports system reviewed and no additional complaints, except as documented Cardiovascular: Reports as per HPI and Reports no additional cardiovascular complaints Respiratory: Reports as per HPI and Reports no additional respiratory complaints Gastrointestinal: Reports as per HPI and Reports no additional gastrointestinal complaints Genitourinary: Reports no additional female genitourinary complaints Musculoskeletal: Reports no additional musculoskeletal complaints Skin/Breast: Reports system reviewed and no additional complaints, except as docu Psychiatric: Reports no additional psychiatric complaints Endocrine: Reports no additional endocrine complaints Hematologic/Lymphatic: Reports no additional hematologic/lymphatic complaints Allergic/Immunologic: Reports no additional allergic/immunologic complaints Reports system reviewed and no additional complaints, except as documented and Reports Abnormal speech present Physical Exam Vital Signs: Vital Signs: Last Vital Signs Temp 99.1 F 01/26/21 22:00 Pulse 83 01/26/21 22:00 Resp 16 01/26/21 22:00 BP 130/98 H 01/26/21 22:00 Pulse Ox 99 01/26/21 22:00 Body Mass Index 28.3 Vital signs have been reviewed as appeared to be correct. Blood pressure normal. Heart rate normal. Respiration rate normal. Temperature normal. Oxygen saturation normal. Appearance: Alert. Oriented X3. No acute distress. Head: Normal external exam. Normocephalic. Atraumatic. No Yun signs noted. No raccoon eyes noted Eyes: PERRLA. EOMI. Conjunctiva and sclera normal. Eyelids normal. ENT: TM's Normal. Pharynx normal. Uvula midline. Moist mucous membranes. No trismus noted. No drooling noted. No muffled voice noted. Neck: Normal inspection. Neck supple. FROM. No adenopathy. Thyroid Normal. No meningeal signs. No neck mass noted. CVS: Normal heart rate and rhythm. Heart sound normal. No murmurs noted. Pulses normal throughout. Respiratory: No respiratory distress. Painless inspiration. Breath sounds normal. No wheezes/rales/rhonchi noted. Chest nontender. No accessory muscle usage noted or decreased air movement noted. Abdomen: Soft, mild epigastric tenderness, no rebound, no guarding. Bowel sounds normal in all 4 quadrants. No distention noted. No organomegaly noted. No visible injury noted. Back: No CVA tenderness. Full range of motion noted. Skin: Skin warm and dry. Normal skin color. Normal skin turgor. No rashes/lesions/lacerations noted. Extremities: No lower extremity edema. Extremities exhibit normal range of motion. Extremities nontender. Neuro: Oriented X 3. Cranial nerve exam: II-XII are grossly intact No motor deficit. No sensory deficit. Reflexes normal. Course Course Course Narrative: Assessment and plan. 50-year-old female came in with acute on chronic abdominal pain, patient has been followed by reproducer had workup in the past for her symptoms and reportedly by the patient everything was fine, patient's symptoms improved, patient had a workup for abdominal pain in the emergency department which was unremarkable, patient is to tolerate p.o. intake. MDM - Abdominal Pain Lab Data Attestation: I reviewed the patient's lab results. Result diagrams: 01/26/21 20:30 01/26/21 20:28 Labs: Lab Results 01/26/21 01/26/21 01/26/21 Range/Units 20:28 20:28 20:28 WBC (4.8-10.8) X10*3/uL RBC (4.20-5.50) X10*6/uL Hgb (12.0-16.0) g/dl Hct (37-47) % MCV (80-98) fL MCH (27.0-33.0) pg MCHC (31.0-35.0) g/dl RDW (11.0-16.0) % Plt Count (160-400) X10*3/uL MPV (9.4-12.3) fL Immature Gran % (Auto) (0.0-0.4) % Neut % (Auto) (45-73) % Lymph % (Auto) (20-40) % [place] % (Auto) (2-11) % Eos % (Auto) (0-4) % Baso % (Auto) (0-2) % Lymph # (Auto) (1.2-4.9) X10*3/uL [place] # (Auto) (0.1-1.2) X10*3/uL Eos # (Auto) (0.0-0.4) X10*3/uL Baso # (Auto) (0.0-0.2) X10*3/uL Abs Immat Gran (auto) (0.00-0.03) X10*3/uL Absolute Neuts (auto) (2.0-8.3) X10*3/uL Absolute Nucleated RBC (0.0-0.012) X10*3/uL Nucleated RBC % (auto) (0.0-0.2) /100WBC Sodium 138 (135-145) mmol/L Potassium 3.0 L (3.3-5.1) mmol/L Chloride 106 (96-108) mmol/L Carbon Dioxide 25 (22-29) mmol/L Anion Gap 10 L (12-20) BUN 15 (9-16) mg/dL Creatinine 0.75 (0.5-1.4) mg/dL Estim Creat Clear Calc 75.1 Estimated GFR > 60 Random Glucose 103 (60-115) mg/dL Calcium 9.2 (8.4-10.2) mg/dL Total Bilirubin 0.6 0.6 (0.0-1.0) mg/dL Direct Bilirubin 0.2 (0.0-0.5) mg/dL AST 14 15 (5-31) U/L ALT 16 16 (0-31) U/L Alkaline Phosphatase 57 D 57 (39-117) U/L Total Protein 6.3 L 6.3 L (6.5-8.0) g/dL Albumin 4.0 4.0 (3.5-5.0) g/dL Lipase 34 (8-78) U/L Urine Color YELLOW Urine Appearance CLEAR Urine pH 7.0 (5.0-8.0) Ur Specific [place] 1.015 (1.005-1.025) Urine Protein NEG (NEG-TRACE) MG/DL Urine Glucose (UA) NEG (NEG) MG/DL Urine Ketones NEG (NEG) MG/DL Urine Blood 1+ H (NEG) Urine Nitrite NEG (NEG) Ur Leukocyte Esterase NEG (NEG) Urine RBC 1-4 (0) /HPF Urine WBC 0-2 (0-4) /HPF Ur Squamous Epith Cells 1+ /LPF Urine Bacteria 1+ /LPF 01/26/21 Range/Units 20:30 WBC 8.8 (4.8-10.8) X10*3/uL RBC 3.68 L (4.20-5.50) X10*6/uL Hgb 12.3 (12.0-16.0) g/dl Hct 35.0 L (37-47) % MCV 95.1 (80-98) fL MCH 33.4 H (27.0-33.0) pg MCHC 35.1 H (31.0-35.0) g/dl RDW 13.0 (11.0-16.0) % Plt Count 273 (160-400) X10*3/uL MPV 11.0 (9.4-12.3) fL Immature Gran % (Auto) 0.3 (0.0-0.4) % Neut % (Auto) 66.6 (45-73) % Lymph % (Auto) 21.3 (20-40) % [place] % (Auto) 9.6 (2-11) % Eos % (Auto) 1.7 (0-4) % Baso % (Auto) 0.5 (0-2) % Lymph # (Auto) 1.9 (1.2-4.9) X10*3/uL [place] # (Auto) 0.8 (0.1-1.2) X10*3/uL Eos # (Auto) 0.2 (0.0-0.4) X10*3/uL Baso # (Auto) 0.0 (0.0-0.2) X10*3/uL Abs Immat Gran (auto) 0.03 (0.00-0.03) X10*3/uL Absolute Neuts (auto) 5.9 (2.0-8.3) X10*3/uL Absolute Nucleated RBC 0.000 (0.0-0.012) X10*3/uL Nucleated RBC % (auto) 0.0 (0.0-0.2) /100WBC Sodium (135-145) mmol/L Potassium (3.3-5.1) mmol/L Chloride (96-108) mmol/L Carbon Dioxide (22-29) mmol/L Anion Gap (12-20) BUN (9-16) mg/dL Creatinine (0.5-1.4) mg/dL Estim Creat Clear Calc Estimated GFR Random Glucose (60-115) mg/dL Calcium (8.4-10.2) mg/dL Total Bilirubin (0.0-1.0) mg/dL Direct Bilirubin (0.0-0.5) mg/dL AST (5-31) U/L ALT (0-31) U/L Alkaline Phosphatase (39-117) U/L Total Protein (6.5-8.0) g/dL Albumin (3.5-5.0) g/dL Lipase (8-78) U/L Urine Color Urine Appearance Urine pH (5.0-8.0) Ur Specific [place] (1.005-1.025) Urine Protein (NEG-TRACE) MG/DL Urine Glucose (UA) (NEG) MG/DL Urine Ketones (NEG) MG/DL Urine Blood (NEG) Urine Nitrite (NEG) Ur Leukocyte Esterase (NEG) Urine RBC (0) /HPF Urine WBC (0-4) /HPF Ur Squamous Epith Cells /LPF Urine Bacteria /LPF Imaging Data CT scan - abdomen: Radiologist's impression: 1. No acute abnormality CT scan abdomen pelvis. 2. Enlarged fibroid uterus. IUD in endometrial cavity. Discharge Plan Discharge Clinical Impression: Fibroid Abdominal pain Qualifiers: Abdominal location: unspecified location Qualified Code(s): R10.9 - Unspecified abdominal pain Patient Disposition: Home, Self-Care Instructions: Abdominal Pain (ED) Prescriptions: No Action ondansetron HCl 4 mg tablet 1 tab PO Q8H PRN (Reason: nausea) RF: 0 sumatriptan succinate 50 mg tablet 1 tab PO DAILY PRN (Reason: Migraine Headache) RF: 0 cyanocobalamin (vitamin B-12) 1,000 mcg tablet 1 tab PO DAILY RF: 0 topiramate 25 mg tablet 1 tab PO BEDTIME RF: 0 levothyroxine 75 mcg tablet 1 tab PO DAILY RF: 0 lorazepam [Ativan] 0.5 mg tablet 1 - 2 tab PO DAILY PRN (Reason: anxiety) RF: 0 fluoxetine 10 mg capsule 10 mg PO Q OTHER DAY RF: 0 sertraline [Zoloft] 25 mg tablet 1 tab PO BEDTIME RF: 0 lisinopril-hydrochlorothiazide 10-12.5 mg tablet 1 tab PO DAILY RF: 0 Restasis 0.05 % dropperette 1 drp ophthalmic (eye) BID RF: 0 omeprazole 20 mg tablet,delayed release (DR/EC) 1 tab PO BID RF: 0 sucralfate [Carafate] 100 mg/mL suspension 10 ml PO BID 14 Days Qty: 280 RF: 0 acetaminophen [Tylenol Extra Strength] 500 mg tablet 500 mg PO Q6H PRN (Reason: pain or fever) Qty: 20 RF: 0 lidocaine [Lidoderm] 5 % adhesive patch,medicated 1 patch topical DAILY MDD remove after 12 hours PRN (Reason: pain) Qty: 30 RF: 0 naproxen 500 mg tablet 500 mg PO BID PRN (Reason: pain) 10 Days Qty: 20 RF: 0 cyclobenzaprine 5 mg tablet 5 mg PO Q8H PRN (Reason: pain (scale score 7-10)) 5 Days Qty: 14 RF: 0 tizanidine 4 mg tablet 4 mg PO Q8H PRN (Reason: muscle spasticity) Qty: 90 RF: 8 Referrals: Mary Ann Luke MD [Primary Care Provider] - 2 days Maine Evans MD [Physician] - 2 days [facility] Past Medical History Medical History Anxiety Depression Fibromyalgia GERD (gastroesophageal reflux disease) HTN (hypertension) Hypothyroid Migraine headache Spondylosis of cervical region without myelopathy or radiculopathy Tension headache Social History Social History Alcohol intake: never Advance Directives: No Advance Directives Information Provided: No Patient : No
[2021-01-26 21:34] LABS: Bacteria Urine 1+ /LPF; WBC Urine 0-2 /HPF (0-4)
[2021-01-26 22:00] VITALS: BP 130/98; PULSE 83; RESP 16; TEMP 37.3; O2SAT 99
[2021-01-26] MEDS: Ketorolac Tromethamine 15 MG/ML VIAL IVPUSH (22:13)
[2021-01-26] MEDS: ondansetron HCL 4 MG/2 ML VIAL IVPUSH (22:13)
[2021-01-26] MEDS: Potassium Chloride Packet 20 MEQ PACKET 40 MEQ PO (23:41)
== END 2021-01-26 23:43 | disposition home or self-care (01) ==
PROVIDERS: Emergency Provider Emergency Medicine; PCP Internal Medicine
DX: D25.9 Leiomyoma of uterus, unspecified (principal); R10.9 Unspecified abdominal pain; K59.00 Constipation, unspecified; Z79.899 Other long term (current) drug therapy
CPT/HCPCS: 36415; 74176; 80053; 80076; 81001; 81003; 82248; 83690; 85025; 96374; 96375; 99284; J1885; J2405

== ENCOUNTER → 2021-02-01 13:49 | Outpatient (BNVA) | payer OTHER, SELFPAY | PROVIDERS: PCP Internal Medicine; Visit Provider Physician Assistant | DX: K21.9 Gastro-esophageal reflux disease without esophagitis (principal); K59.09 Other constipation | CPT/HCPCS: 99202 ==

== ENCOUNTER 2021-02-02 18:17 | Emergency (ER) | payer OTHER, SELFPAY ==
[2021-02-02 20:01] VITALS: BP 144/92; PULSE 77; RESP 16; TEMP 35.5; O2SAT 98; BMI 26.9
--- NOTE | 2021-02-02 21:23 | ED_ITS ---
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 Patient is known to have hemorrhoids, patient by accident was using hair remover cream that touched the hemorrhoid causing the hemorrhoid to enlarge, patient declined bleeding, or rectal pain. Patient also complaining of urinary frequency, no fever, no chills. Related Data Home Medications Medication Instructions Recorded Confirmed cyanocobalamin (vitamin B-12) 1 tab PO DAILY 09/25/20 02/01/21 1,000 mcg tablet cyclosporine 0.05 % eye drops in a 1 drp OPHTHALMIC (EYE) BID 09/25/20 02/01/21 dropperette (Restasis) fluoxetine 10 mg capsule 10 mg PO Q OTHER DAY 09/25/20 02/01/21 levothyroxine 75 mcg tablet 1 tab PO DAILY 09/25/20 02/01/21 lisinopril 10 1 tab PO DAILY 09/25/20 02/01/21 mg-hydrochlorothiazide 12.5 mg tablet lorazepam 0.5 mg tablet (Ativan) 1 - 2 tab PO DAILY PRN 09/25/20 02/01/21 ondansetron HCl 4 mg tablet 1 tab PO Q8H PRN 09/25/20 02/01/21 sertraline 25 mg tablet (Zoloft) 1 tab PO BEDTIME 09/25/20 02/01/21 sumatriptan succinate 50 mg tablet 1 tab PO DAILY PRN 09/25/20 02/01/21 topiramate 25 mg tablet 1 tab PO BEDTIME 09/25/20 02/01/21 celecoxib 100 mg capsule 100 mg PO BID 02/01/21 02/01/21 omeprazole 20 mg tablet,delayed 10 mg PO BID tab 02/01/21 02/01/21 release Previous Rx's Medication Instructions Recorded tizanidine 4 mg tablet 4 mg PO Q8H PRN #90 tab 07/31/20 sucralfate 100 mg/mL oral 10 ml PO BID 14 Days #280 ml 08/18/20 suspension (Carafate) acetaminophen 500 mg tablet 500 mg PO Q6H PRN #20 tab 08/28/20 (Tylenol Extra Strength) cyclobenzaprine 5 mg tablet 5 mg PO Q8H PRN 5 Days #14 tab 08/28/20 lidocaine 5 % topical patch 1 patch TOPICAL DAILY PRN #30 ea 08/28/20 (Lidoderm) MDD remove after 12 hours naproxen 500 mg tablet 500 mg PO BID PRN 10 Days #20 tab 08/28/20 docusate sodium 100 mg capsule 200 mg PO BEDTIME #60 cap 02/01/21 (Colace) methylcellulose (laxative) 500 mg 500 mg PO BID #60 tab 02/01/21 tablet (Citrucel) omeprazole 20 mg capsule,delayed 20 mg PO DAILY #30 cap 02/01/21 release polyethylene glycol 3350 17 gram 17 g PO DAILY #30 ea 02/01/21 oral powder packet (Miralax) Allergies Allergy/AdvReac Type Severity Reaction Status Date / Time mushroom Allergy Mild BECOMES Verified 02/01/21 14:24 UNCONSIOUS amoxicillin [AMOXICILLIN] Allergy Unknown RASH Verified 02/01/21 14:24 Review of Systems Review of Systems: All other systems are reviewed and are negative Constitutional: Reports as per HPI and Reports no additional constitutional complaints Eyes: Reports as per HPI and Reports no additional eye complaints Reports system reviewed and no additional complaints, except as documented Cardiovascular: Reports as per HPI and Reports no additional cardiovascular complaints Respiratory: Reports as per HPI and Reports no additional respiratory complaints Gastrointestinal: Reports as per HPI and Reports no additional gastrointestinal complaints Genitourinary: Reports no additional female genitourinary complaints Musculoskeletal: Reports no additional musculoskeletal complaints Skin/Breast: Reports system reviewed and no additional complaints, except as docu Psychiatric: Reports no additional psychiatric complaints Endocrine: Reports no additional endocrine complaints Hematologic/Lymphatic: Reports no additional hematologic/lymphatic complaints Allergic/Immunologic: Reports no additional allergic/immunologic complaints Reports system reviewed and no additional complaints, except as documented and Reports Abnormal speech present PENDING SALE TO [facility] Past Medical History Medical History Anxiety Depression Fibromyalgia GERD (gastroesophageal reflux disease) HTN (hypertension) Hypothyroid Migraine headache Spondylosis of cervical region without myelopathy or radiculopathy Tension headache Surgical History History of esophagogastroduodenoscopy (EGD) Hx of colonoscopy Social History Social History Household Members Other:: 2 kids Alcohol intake: never Patient Tobacco Use Status: Never used Tobacco Advance Directives: No Advance Directives Information Provided: Yes Current occupational status: unemployed Physical Exam Vital Signs: Vital Signs: Last Vital Signs Temp 96 F L 02/02/21 20:01 Pulse 77 02/02/21 20:01 Resp 16 02/02/21 20:01 BP 144/92 H 02/02/21 20:01 Pulse Ox 98 02/02/21 20:01 Body Mass Index 26.9 Vital signs have been reviewed as appeared to be correct. Blood pressure normal. Heart rate normal. Respiration rate normal. Temperature normal. Oxygen saturation normal. Appearance: Alert. Oriented X3. No acute distress. Head: Normal external exam. Normocephalic. Atraumatic. No Yun signs noted. No raccoon eyes noted Eyes: PERRLA. EOMI. Conjunctiva and sclera normal. Eyelids normal. ENT: TM's Normal. Pharynx normal. Uvula midline. Moist mucous membranes. No trismus noted. No drooling noted. No muffled voice noted. Neck: Normal inspection. Neck supple. FROM. No adenopathy. Thyroid Normal. No meningeal signs. No neck mass noted. CVS: Normal heart rate and rhythm. Heart sound normal. No murmurs noted. Pulses normal throughout. Respiratory: No respiratory distress. Painless inspiration. Breath sounds normal. No wheezes/rales/rhonchi noted. Chest nontender. No accessory muscle usage noted or decreased air movement noted. Abdomen: Soft and nontender. Bowel sounds normal in all 4 quadrants. No distention noted. No organomegaly noted. No visible injury noted. Rectal exam: 3 x 3 cm external hemorrhoid at 06:00 o'clock, no thrombosis, no tenderness, no active bleeding. Back: No CVA tenderness. Full range of motion noted. Skin: Skin warm and dry. Normal skin color. Normal skin turgor. No rashes/lesions/lacerations noted. Extremities: No lower extremity edema. Extremities exhibit normal range of motion. Extremities nontender. Neuro: Oriented X 3. Cranial nerve exam: II-XII are grossly intact No motor deficit. No sensory deficit. Reflexes normal. Course Course Course Narrative: Assessment and plan. Noncomplicated hemorrhoid patient was instructed to use Sitz bath was warm water frequently, watch for sign of bleeding or severe pain to return, otherwise follow up with the surgeon. Patient is complaining of urinary frequency will check UA. Medical Decision Making Lab Data Labs: Lab Results 02/02/21 02/02/21 Range/Units 21:38 21:39 Urine Color STRAW Urine Appearance CLEAR Urine pH 5.5 (5.0-8.0) Ur Specific [place] 1.010 (1.005-1.025) Urine Protein NEG (NEG-TRACE) MG/DL Urine Glucose (UA) NEG (NEG) MG/DL Urine Ketones 5 (NEG) MG/DL Urine Blood TRACE (NEG) Urine Nitrite NEG (NEG) Ur Leukocyte Esterase NEG (NEG) Urine RBC 0 (0) /HPF Urine WBC 0 (0-4) /HPF Ur Squamous Epith Cells 1+ /LPF Urine Bacteria TRACE /LPF Urine Test NEGATIVE (NEGATIVE) Discharge Plan Discharge Clinical Impression: External hemorrhoid Patient Disposition: Home, Self-Care Instructions: Hemorrhoids (ED) Additional Instructions: Use Sitz baths with warm water and Epson salt every 2 hours. Return if any active bleeding. Return if intractable pain. Prescriptions: No Action ondansetron HCl 4 mg tablet 1 tab PO Q8H PRN (Reason: nausea) RF: 0 sumatriptan succinate 50 mg tablet 1 tab PO DAILY PRN (Reason: Migraine Headache) RF: 0 cyanocobalamin (vitamin B-12) 1,000 mcg tablet 1 tab PO DAILY RF: 0 topiramate 25 mg tablet 1 tab PO BEDTIME RF: 0 levothyroxine 75 mcg tablet 1 tab PO DAILY RF: 0 lorazepam [Ativan] 0.5 mg tablet 1 - 2 tab PO DAILY PRN (Reason: anxiety) RF: 0 fluoxetine 10 mg capsule 10 mg PO Q OTHER DAY RF: 0 sertraline [Zoloft] 25 mg tablet 1 tab PO BEDTIME RF: 0 lisinopril-hydrochlorothiazide 10-12.5 mg tablet 1 tab PO DAILY RF: 0 Restasis 0.05 % dropperette 1 drp ophthalmic (eye) BID RF: 0 omeprazole 20 mg tablet,delayed release (DR/EC) 10 mg PO BID RF: 0 sucralfate [Carafate] 100 mg/mL suspension 10 ml PO BID 14 Days Qty: 280 RF: 0 acetaminophen [Tylenol Extra Strength] 500 mg tablet 500 mg PO Q6H PRN (Reason: pain or fever) Qty: 20 RF: 0 lidocaine [Lidoderm] 5 % adhesive patch,medicated 1 patch topical DAILY MDD remove after 12 hours PRN (Reason: pain) Qty: 30 RF: 0 naproxen 500 mg tablet 500 mg PO BID PRN (Reason: pain) 10 Days Qty: 20 RF: 0 cyclobenzaprine 5 mg tablet 5 mg PO Q8H PRN (Reason: pain (scale score 7-10)) 5 Days Qty: 14 RF: 0 celecoxib 100 mg capsule 100 mg PO BID RF: 0 Citrucel 500 mg tablet 500 mg PO BID Qty: 60 RF: 5 polyethylene glycol 3350 [Miralax] 17 gram powder in packet 17 g PO DAILY Qty: 30 RF: 5 docusate sodium [Colace] 100 mg capsule 200 mg PO BEDTIME Qty: 60 RF: 5 omeprazole 20 mg capsule,delayed release(DR/EC) 20 mg PO DAILY Qty: 30 RF: 5 tizanidine 4 mg tablet 4 mg PO Q8H PRN (Reason: muscle spasticity) Qty: 90 RF: 8 Referrals: Mary Ann Luke MD [Primary Care Provider] - 2 days Renata Terrazas MD [Physician] - 2 days
[2021-02-02 21:49] LABS: Appearance Urine CLEAR; Color Urine STRAW; Glucose Urine UA NEG (NEG); Leukocyte Esterase Urine NEG (NEG); Nitrite Urine NEG (NEG); PH 5.5 (5.0-8.0); UACC Culture Trigger NO; Urine Blood TRACE (NEG); Urine Ketones 5 MG/DL (NEG); Urine Protein NEG (NEG-TRACE)
[2021-02-02 21:51] LABS: UPreg QC Valid YES; Urine Pregnancy NEGATIVE (NEGATIVE)
[2021-02-02 21:58] LABS: Bacteria Urine TRACE /LPF; RBC Urine 0 /HPF (0); Squamous Epithelial Cell Urine 1+ /LPF; WBC Urine 0 /HPF (0-4)
[2021-02-02 22:27] VITALS: BP 118/85; PULSE 63; RESP 15; TEMP 37.2; O2SAT 98
== END 2021-02-02 22:36 | disposition home or self-care (01) ==
PROVIDERS: Emergency Provider Emergency Medicine; PCP Internal Medicine
DX: K64.4 Residual hemorrhoidal skin tags (principal); Z79.899 Other long term (current) drug therapy
CPT/HCPCS: 81001; 81025; 99283

== ENCOUNTER → 2021-02-28 15:48 | Outpatient (BNVA) | payer OTHER, SELFPAY | PROVIDERS: PCP Internal Medicine; Visit Provider Surgery | DX: K64.8 Other hemorrhoids (principal) | CPT/HCPCS: 46600; 99202 ==

== ENCOUNTER 2021-03-30 09:09 | Day surgery (SDC) | payer OTHER, SELFPAY ==
--- NOTE | 2021-03-29 09:01 | HO.ANESPROP2 ---
Documented by User: Aster Del Angel NP 03/29/21 09:02 HPI - Anesthesia Eval Consult details Narrative: 51yo F for Exam Under Anesthesia, Hemorrhoidectomy PMFSH Active Problems Active Problems: All Active Problems (Updated 02/28/21 @ 16:20 by Sj Bearden MD) Hemorrhoids with complication (Acute) GERD (gastroesophageal reflux disease) (Acute) Chronic constipation (Acute) Spondylosis of cervical region without myelopathy or radiculopathy (Acute) Past Medical History Medical History Anxiety Depression Fibromyalgia GERD (gastroesophageal reflux disease) Hemorrhoids with complication HTN (hypertension) Hypothyroid Migraine headache Spondylosis of cervical region without myelopathy or radiculopathy Tension headache Surgical History Surgical History History of esophagogastroduodenoscopy (EGD) Hx of colonoscopy Social History Social History Household Members Other:: 2 kids Alcohol intake: never Patient Tobacco Use Status: Never used Tobacco Use of substances other than those prescribed or required for medical reasons: No Are you DNR?: No Advance Directives: No Advance Directives Information Provided: Yes Current occupational status: unemployed Meds Allergies Allergy/AdvReac Type Severity Reaction Status Date / Time mushroom Allergy Mild BECOMES Verified 03/23/21 14:42 UNCONSIOUS amoxicillin [AMOXICILLIN] Allergy Unknown RASH Verified 03/23/21 14:42 Home Medications Medication Instructions Recorded Confirmed Last Taken Type cyanocobalamin (vitamin B-12) 1 tab PO DAILY 09/25/20 03/23/21 Unknown History 1,000 mcg tablet cyclosporine 0.05 % eye drops in a 1 drp OPHTHALMIC (EYE) BID 09/25/20 03/23/21 Unknown History dropperette (Restasis) fluoxetine 10 mg capsule 10 mg PO Q OTHER DAY 09/25/20 03/23/21 Unknown History levothyroxine 75 mcg tablet 1 tab PO DAILY 09/25/20 03/23/21 09/29/20 History lisinopril 10 1 tab PO DAILY 09/25/20 03/23/21 Unknown History mg-hydrochlorothiazide 12.5 mg tablet lorazepam 0.5 mg tablet (Ativan) 1 - 2 tab PO DAILY PRN 09/25/20 03/23/21 09/29/20 History ondansetron HCl 4 mg tablet 1 tab PO Q8H PRN 09/25/20 03/23/21 Unknown History sertraline 25 mg tablet (Zoloft) 1 tab PO BEDTIME 09/25/20 03/23/21 09/29/20 History sumatriptan succinate 50 mg tablet 1 tab PO DAILY PRN 09/25/20 03/23/21 Unknown History topiramate 25 mg tablet 1 tab PO BEDTIME 09/25/20 03/23/21 09/29/20 History celecoxib 100 mg capsule 100 mg PO BID 02/01/21 03/23/21 Unknown History Exam Exam Date and Time: March 29, [id number] Pertinent Lab Results Pertinent Lab Results: Laboratory Tests 01/26/21 01/26/21 20:28 20:30 WBC 8.8 Hgb 12.3 Hct 35.0 L Plt Count 273 Carbon Dioxide 25 BUN 15 Creatinine 0.75 Assessment and Plan Assessment Anesthesia Assessment: Chart Reviewed Documented by User: Gabriel Smith MD 03/30/21 10:58 PMFSH Past Medical History Medical History Anxiety Depression Fibromyalgia GERD (gastroesophageal reflux disease) Hemorrhoids with complication HTN (hypertension) Hypothyroid Migraine headache Spondylosis of cervical region without myelopathy or radiculopathy Tension headache Patient : No Family History Family history of problems with anesthesia: No Surgical History Surgical History History of esophagogastroduodenoscopy (EGD) Hx of colonoscopy History of Problems with Anesthesia: No Social History Social History Household Members Other:: 2 kids Alcohol intake: never Patient Tobacco Use Status: Never used Tobacco Use of substances other than those prescribed or required for medical reasons: No Are you DNR?: No Advance Directives: No Advance Directives Information Provided: Yes Current occupational status: unemployed Meds Allergies Allergy/AdvReac Type Severity Reaction Status Date / Time mushroom Allergy Mild BECOMES Verified 03/23/21 14:42 UNCONSIOUS amoxicillin [AMOXICILLIN] Allergy Unknown RASH Verified 03/23/21 14:42 Home Medications Medication Instructions Recorded Confirmed Last Taken Type cyanocobalamin (vitamin B-12) 1 tab PO DAILY 09/25/20 03/23/21 Unknown History 1,000 mcg tablet cyclosporine 0.05 % eye drops in a 1 drp OPHTHALMIC (EYE) BID 09/25/20 03/23/21 Unknown History dropperette (Restasis) fluoxetine 10 mg capsule 10 mg PO Q OTHER DAY 09/25/20 03/23/21 Unknown History levothyroxine 75 mcg tablet 1 tab PO DAILY 09/25/20 03/23/21 09/29/20 History lisinopril 10 1 tab PO DAILY 09/25/20 03/23/21 Unknown History mg-hydrochlorothiazide 12.5 mg tablet lorazepam 0.5 mg tablet (Ativan) 1 - 2 tab PO DAILY PRN 09/25/20 03/23/21 09/29/20 History ondansetron HCl 4 mg tablet 1 tab PO Q8H PRN 09/25/20 03/23/21 Unknown History sertraline 25 mg tablet (Zoloft) 1 tab PO BEDTIME 09/25/20 03/23/21 09/29/20 History sumatriptan succinate 50 mg tablet 1 tab PO DAILY PRN 09/25/20 03/23/21 Unknown History topiramate 25 mg tablet 1 tab PO BEDTIME 09/25/20 03/23/21 09/29/20 History celecoxib 100 mg capsule 100 mg PO BID 02/01/21 03/23/21 Unknown History Exam Airway Mallampati Class: II TM Dist: >3cm Neck ROM: Full (Sat her up, checked her neck flexion and extension at length. No problems.) Loose/Missing/Broken Teeth: No Heart: ok Lungs: ok Assessment and Plan Final Anesthetic Review Family History of Problems with Anesthesia: No History of Problems with Anesthesia: No NPO: Yes ASA Class: II Final Preanesthetic Review: No Changes in Pt Med Stat, Meds/Allgs Chart Reviewed, Consent Obtained/Reviewed and Anes Risks/Benef Reviewed Patient Risk: Low Procedure Risk: Low Anesthetic Plan Anesthetic Plan: GA and Agree w/ Assess. and Plan Disposition: Standard PACU
[2021-03-30] VITALS (11 sets, daily range): BP systolic 129–157; BP diastolic 68–94; PULSE 62–96; RESP 16–20; TEMP 36.4–36.7; O2SAT 95–100; BMI 28.5
[2021-03-30 10:18] LABS: Anion Gap 9 (12-20); Carbon Dioxide 27 mmol/L (22-29); Chloride 106 mmol/L (96-108); Potassium 3.9 mmol/L (3.3-5.1); Sodium 138 mmol/L (135-145)
--- NOTE | 2021-03-30 10:37 | MHC.SHP ---
Pre-Procedural Eval Section A Date of Service: 03/30/21 Section B Chief Complaint: Hemorrhoids Allergies: Allergies Allergy/AdvReac Type Severity Reaction Status Date / Time mushroom Allergy Mild BECOMES Verified 03/23/21 14:42 UNCONSIOUS amoxicillin [AMOXICILLIN] Allergy Unknown RASH Verified 03/23/21 14:42 Plan I have reviewed the history and physical and performed a pertinent physical examination on my patient. No changes have occurred unless specified.
[2021-03-30] MEDS: Lactated Ringers 1,000 ML 100 ML IVCONT ×2 (10:42→15:38)
--- NOTE | 2021-03-30 11:49 | P.OP_ITS ---
Operative Note Operative Note Date of Service: 03/30/21 Narrative: Preop diagnosis: Internal and external hemorrhoids, with pain Postop diagnosis: The same Procedure: Exam under anesthesia hemorrhoidectomy x2 columns Surgeon: Sj Bearden MD Patient is a 51 year female who was seen in the office because of this with her hemorrhoids. She describes discomfort and pain with her hemorrhoids which examination revealed a large hemorrhoidal column on the left and an external hemorrhoid column on the right anterior. In view of her pain and discomfort, she wanted proceed him with hemorrhoidectomy. She understood the technique of the procedure as well as the risks, benefits, and alternatives He was brought to the operating room and placed in prone sheryl-knife position under general anesthesia via laryngeal mask airway. The buttocks were retracted with wide tape laterally. The perianal area was prepped and draped usual sterile fashion. A surgical time-out was done. The patient received Cefotan 2 g IV preoperatively Examination of the anal orifice revealed a bulky hemorrhoidal column on the right side with note of some prolapse. There was at external hemorrhoidal column on the posterior as well . I inserted abuse Teixeira retractor and examined the anal canal circumferentially. Again there was note of this bulky mix of internal and external hemorrhoidal column on the left anterior with prolapse. I applied a Navas grasper on this column to retract this. I placed a [id number] stitch with a chromic 3-0 its pedicle past the dentate line. I made an incision around this hemorrhoidal column to the perianal skin using blade 15 and excised this hemorr hoidal column above the plane of sphincters using scissors. I closed this incision with a running chromic 3-0 stitch. I then proceeded to remove the hemorrhoid on the right side. This was grasped with a Navas grasper. I made a [id number] stitch at the pedicle. This is mostly an external hemorrhoid. I made an incision around this hemorrhoidal column to the perianal skin using blade 15 and excised this hemorrhoidal column above the plane of sphincters using scissors. I closed this incision with a running chromic 3-0 stitch as well. Hemostasis was ensured. Once hemostasis was confirmed, proceeded to then infiltrated the perianal area with Marcaine 0.5% for postop analgesia. I rolled foam was placed into the anal canal P procedure was completed . The patient tolerated procedure well. There were no complication noted. Initial and final counts of sponges and instruments were correct. Estimated blood loss was about 20 cc . The patient was extubated without difficulty and transferred to recovery room with stable vital signs.
[2021-03-30] MEDS: fentaNYL citrate/PF 100 MCG/2 ML VIAL 50 MCG IVPUSH ×3 (12:03→12:28)
[2021-03-30] MEDS: oxyCODONE HCl Immed Release 5 MG TABLET 10 MG PO (12:18)
[2021-03-30] MEDS: ondansetron HCL 4 MG/2 ML VIAL IVPUSH (13:06)
--- NOTE | 2021-03-30 15:15 | PC.NURSE ---
Patient returned from discharge area after receiving instructions with c/o nausea. back to PACU bed 15 new IV #22 placed in right hand, IVF LR restarted as per Aster Del Angel's orders, Phernegan 6.25 mg IV hanged for nausea as per order patient immediately feel asleep, BP 149/84 O2 sat 98%, HR 78
--- NOTE | 2021-03-30 15:30 | PC.NURSE ---
sleeping, IVF infusing HR 77, RR 16, BP 126/66
[2021-03-30] MEDS: Lactated Ringers 500 ML IVCONT (15:39)
--- NOTE | 2021-03-30 16:00 | PC.NURSE ---
sleeping, offers no complains when awake, IVF infusing, HR 78, RR 20, BP 133/83
--- NOTE | 2021-03-30 16:30 | PC.NURSE ---
awake, feels well, no c/o pain or nausea, IV and monitor off, BP 138/87 HR 88 O2 sat 97%, assisted with dressing and wheeled outside with family
== END 2021-03-30 16:50 | disposition home or self-care (01) ==
PROVIDERS: Nurse Practitioner; PCP Internal Medicine; Visit Provider Surgery
PROC: (CPT 46260; principal; 2021-03-30 10:40)
DX: K64.8 Other hemorrhoids (principal); K64.4 Residual hemorrhoidal skin tags; K21.9 Gastro-esophageal reflux disease without esophagitis; I10 Essential (primary) hypertension; F32.9 Major depressive disorder, single episode, unspecified; Z79.899 Other long term (current) drug therapy; Z88.0 Allergy status to penicillin
CPT/HCPCS: 46260; 36415; 80051; 88304; J1100; J1885; J2250; J2405; J2550; J3010

== ENCOUNTER → 2021-04-11 15:26 | Outpatient (BNVA) | payer OTHER, SELFPAY | PROVIDERS: PCP Internal Medicine; Visit Provider Surgery | DX: Z48.815 Encounter for surgical aftercare following surgery on the digestive system (principal); Z87.19 Personal history of other diseases of the digestive system | CPT/HCPCS: 99212 ==

== ENCOUNTER → 2021-05-01 14:27 | Outpatient (BNVA) | payer OTHER, SELFPAY | PROVIDERS: PCP Internal Medicine; Visit Provider Internal Medicine Gastroenterology | DX: K59.09 Other constipation (principal); R10.13 Epigastric pain | CPT/HCPCS: 99212 ==

== ENCOUNTER 2021-05-16 16:18 | Emergency (ER) | payer OTHER, SELFPAY ==
--- NOTE | 2021-05-16 | ECG_ITS ---
Test Reason : abd pain Blood Pressure : / mmHG Vent. Rate : 082 BPM Atrial Rate : 082 BPM P-R Int : 136 ms QRS Dur : 080 ms QT Int : 392 ms P-R-T Axes : 037 026 007 degrees QTc Int : 457 ms Sinus rhythm with Premature atrial complexes Nonspecific T wave abnormality Abnormal ECG When compared with ECG of 25-NOV-2019 21:43, Premature atrial complexes are now Present T wave inversion more evident in Inferior leads Nonspecific T wave abnormality now evident in Lateral leads Referred By: Generic ED Physician Electronically Signed By:MILTON GOULD MD
[2021-05-16 17:43] VITALS: BP 139/100; PULSE 81; RESP 18; TEMP 36.6; O2SAT 96; BMI 27.3
[2021-05-16 18:43] LABS: MANUAL DIFF FLAG NO
[2021-05-16 18:44] LABS: Basophils Percent Auto 0.4 % (0-2); Eosinophils Absolute Auto 0.2 X10*3/uL (0.0-0.4); Eosinophils Percent Auto 3.2 % (0-4); Hematocrit 36.8 % (37.0-47.0); Hemoglobin 12.9 g/dl (12.0-16.0); Imm Gran Abs Auto 0.01 X10*3/uL (0.00-0.03); Imm Gran Pct Auto 0.1 % (0.0-0.4); Lymphocytes Absolute Auto 2.2 X10*3/uL (1.2-4.9); Mean Corpuscular HGB Conc 35.1 g/dl (31.0-35.0); Mean Corpuscular Hemoglobin 33.2 pg (27.0-33.0); Mean Corpuscular Volume 94.8 fL (80.0-98.0); Mean Platelet Volume 10.6 fL (9.4-12.3); Monocytes Absolute Auto 0.8 X10*3/uL (0.1-1.2); Monocytes Percent Auto 11.5 % (2-11); Neutrophils Absolute Auto 3.6 x10*3/uL (2.0-8.3); Neutrophils Percent Auto 52.8 % (45-73); Platelet Count 301 X10*3/uL (160-400); Red Blood Count 3.88 X10*6/uL (4.20-5.50); Red Cell Distribution Width 12.3 % (11.0-16.0); White Blood Count 6.8 X10*3/uL (4.8-10.8)
[2021-05-16 18:59] LABS: Alanine Aminotransferase 14 U/L (0-31); Albumin Level 4.2 g/dL (3.5-5.0); Alkaline Phosphatase 66 U/L (39-117); Anion Gap 14 (12-20); Aspartate Amino Transferase 15 U/L (5-31); Bilirubin Total 0.6 mg/dL (0.0-1.0); Blood Urea Nitrogen 18 mg/dL (9-16); Calcium 9.2 mg/dL (8.4-10.2); Carbon Dioxide 20 mmol/L (22-29); Chloride 107 mmol/L (96-108); Creatinine Clr Calc Pharmacy 62.9; Estimated Glomerular Filt Rate > 60; Glucose Fasting 97 mg/dL (60-99); Lipase 31 U/L (8-78); Sodium 138 mmol/L (135-145)
[2021-05-16 19:05] LABS: Appearance Urine CLEAR; Color Urine YELLOW; Glucose Urine UA NEG (NEG); Leukocyte Esterase Urine TRACE (NEG); Nitrite Urine NEG (NEG); UACC Culture Trigger YES; Urine Blood 1+ (NEG); Urine Ketones 40 MG/DL (NEG); Urine Protein TRACE MG/DL (NEG-TRACE)
[2021-05-16 19:25] LABS: Bacteria Urine 2+ /LPF; Squamous Epithelial Cell Urine 3+ /LPF
== END 2021-05-16 22:41 | disposition left against medical advice (07) ==
PROVIDERS: Emergency Provider Emergency Medicine
DX: U07.1 COVID-19 (principal)
CPT/HCPCS: 36415; 80053; 81001; 83690; 85025; 87086; 93005; 99283

== ENCOUNTER 2022-05-26 17:35 | Emergency (ER) | payer OTHER, SELFPAY ==
--- NOTE | ~2022-05-26 | XR_ITS ---
EXAMINATION: XR CHEST CLINICAL INFORMATION: Chest pain and pleurisy COMPARISON: Chest x-ray 04/12/2017 TECHNIQUE: Frontal view of the chest was obtained. FINDINGS: The lungs are mildly hypoinflated but appear clear. No airspace consolidation. No pleural effusion or pneumothorax is identified. The cardiomediastinal silhouette and pulmonary vascularity are within normal limits. No acute osseous injury is identified. Cholecystectomy clips project in the right upper quadrant. XR/XR chest 1V IMPRESSION: Low lung volumes. No acute pulmonary process.
[2022-05-26 17:40] VITALS: BP 129/84; PULSE 74; RESP 18; TEMP 36.4; O2SAT 99; BMI 28.3
--- NOTE | 2022-05-26 17:40 | ECG_ITS ---
Test Reason : CHEST PAIN Blood Pressure : / mmHG Vent. Rate : 065 BPM Atrial Rate : 065 BPM P-R Int : 150 ms QRS Dur : 084 ms QT Int : 382 ms P-R-T Axes : 040 020 023 degrees QTc Int : 397 ms Normal sinus rhythm Possible Anterior infarct , age undetermined Abnormal ECG When compared with ECG of 16-MAY-2021 18:27, Premature atrial complexes are no longer Present T wave inversion less evident in Inferior leads Nonspecific T wave abnormality no longer evident in Lateral leads QT has shortened Referred By: [place]o [place] Electronically Signed By:MILTON GOULD MD
--- NOTE | 2022-05-26 17:41 | ED_ITS ---
HPI - General Adult General Chief complaint: Chest Pain <NELSY Maldonado - Last Filed: 05/26/22 20:42> Stated complaint: chest pain <NELSY Maldonado - Last Filed: 05/26/22 20:42> Time Seen by Provider: 05/26/22 18:51 <NELSY Maldonado - Last Filed: 05/26/22 20:42> Source: patient <Sam Pederson MD - Last Filed: 05/26/22 21:31> Mode of arrival: ambulatory <Sam Pederson MD - Last Filed: 05/26/22 21:31> Limitations: no limitations <Sam Pederson MD - Last Filed: 05/26/22 21:31> History of Present Illness HPI narrative: Patient complaining of blockage of the nose cough bilateral chest pain especially in the nighttime especially for last 1 week patient was seen at urgent care center 4 days ago COVID flu negative patient does have a cat for last 1 year since then patient has been more congested especially in the nighttime patient does have allergies but got worse after she has cat at home <Sam Pederson MD - Last Filed: 05/26/22 21:31> Related Data Home medications: Home Medications Medication Instructions Recorded Confirmed cyanocobalamin (vitamin B-12) 1 tab PO DAILY 09/25/20 05/01/21 1,000 mcg tablet cyclosporine 0.05 % eye drops in a 1 drp ophthalmic (eye) BID 09/25/20 05/01/21 dropperette (Restasis) fluoxetine 10 mg capsule 10 mg PO Q OTHER DAY 09/25/20 05/01/21 levothyroxine 75 mcg tablet 1 tab PO DAILY 09/25/20 05/01/21 lisinopril 10 1 tab PO DAILY 09/25/20 05/01/21 mg-hydrochlorothiazide 12.5 mg tablet lorazepam 0.5 mg tablet (Ativan) 1 - 2 tab PO DAILY PRN anxiety 09/25/20 05/01/21 ondansetron HCl 4 mg tablet 1 tab PO Q8H PRN nausea 09/25/20 05/01/21 sertraline 25 mg tablet (Zoloft) 1 tab PO BEDTIME 09/25/20 05/01/21 sumatriptan succinate 50 mg tablet 1 tab PO DAILY PRN Migraine 09/25/20 05/01/21 Headache topiramate 25 mg tablet 1 tab PO BEDTIME 09/25/20 05/01/21 celecoxib 100 mg capsule 100 mg PO BID 02/01/21 05/01/21 Previous Rx's Medication Instructions Recorded sucralfate 100 mg/mL oral 10 ml PO BID 14 days #280 mL 08/18/20 suspension (Carafate) acetaminophen 500 mg tablet 500 mg PO Q6H PRN pain or fever 08/28/20 (Tylenol Extra Strength) #20 tabs cyclobenzaprine 5 mg tablet 5 mg PO Q8H PRN pain (scale score 08/28/20 7-10) 5 days #14 tabs lidocaine 5 % topical patch 1 patch topical DAILY PRN pain #30 08/28/20 (Lidoderm) ea naproxen 500 mg tablet 500 mg PO BID PRN pain 10 days #20 08/28/20 tabs docusate sodium 100 mg capsule 200 mg PO BEDTIME #60 caps 02/01/21 (Colace) methylcellulose (laxative) 500 mg 500 mg PO BID #60 tabs 02/01/21 tablet (Citrucel) polyethylene glycol 3350 17 gram 17 g PO DAILY #30 ea 02/01/21 oral powder packet (Miralax) docusate sodium 100 mg capsule 100 mg PO BID #60 caps 03/30/21 (Colace) oxycodone-acetaminophen 5 mg-325 1 tab PO Q4-6H PRN pain (scale 03/30/21 mg tablet (Percocet) score 7-10) #30 tabs menthol 0.44 %-zinc oxide 20.6 % 1 appl topical QID PRN wound 04/04/21 topical ointment in packet healing #504 grams (Calmoseptine) tizanidine 4 mg tablet 4 mg PO Q8H PRN muscle spasticity 04/26/21 #90 tabs buspirone 5 mg tablet 5 mg PO BID #10 tabs 05/01/21 linaclotide 72 mcg capsule 72 mcg PO DAILY #30 caps 05/08/21 ondansetron 4 mg disintegrating 4 mg PO Q8H #30 tabs 05/08/21 tablet pantoprazole 40 mg tablet,delayed 40 mg PO BID #60 tabs 05/11/21 release sucralfate 100 mg/mL oral 10 ml PO BID #1,000 mL 06/14/21 suspension albuterol sulfate 90 mcg/actuation 2 puff inhalation Q4-6H PRN 05/26/22 aerosol inhaler (ProAir HFA) shortness of breath or wheezing #8.5 grams benzonatate 200 mg capsule 200 mg PO TID PRN cough #30 caps 05/26/22 cefuroxime axetil 500 mg tablet 500 mg PO BID #20 tabs 05/26/22 fluticasone propionate 50 2 spray intranasal DAILY #16 grams 05/26/22 mcg/actuation nasal spray,suspension prednisone 20 mg tablet 40 mg PO DAILY #10 tabs 05/26/22 <NELSY Maldonado - Last Filed: 05/26/22 20:42> Allergies/adverse reactions: Allergies Allergy/AdvReac Type Severity Reaction Status Date / Time mushroom Allergy Mild BECOMES Verified 05/26/22 17:40 UNCONSIOUS amoxicillin [AMOXICILLIN] Allergy Unknown RASH Verified 05/26/22 17:40 <NELSY Maldonado - Last Filed: 05/26/22 20:42> Review of Systems Review of Systems: Yes all other systems are reviewed and are negative <Sam Pederson MD - Last Filed: 05/26/22 21:31> [facility] Past Medical History Medical History: Medical History Anxiety Depression Fibromyalgia GERD (gastroesophageal reflux disease) Hemorrhoids with complication HTN (hypertension) Hypothyroid Migraine headache PONV (postoperative nausea and vomiting) Spondylosis of cervical region without myelopathy or radiculopathy Tension headache <NELSY Maldonado - Last Filed: 05/26/22 20:42> Surgical History: Surgical History History of esophagogastroduodenoscopy (EGD) History of hemorrhoidectomy Hx of colonoscopy <NELSY Maldonado - Last Filed: 05/26/22 20:42> Social History Social History: Social History Household Members Other:: 2 kids Alcohol intake: never Patient Tobacco Use Status: Never used Tobacco Advance Directives: No Advance Directives Information Provided: Yes Current occupational status: unemployed <NELSY Maldonado - Last Filed: 05/26/22 20:42> Physical Exam ED Vital Signs: Vital Signs - 24 hr 05/26/22 17:40 05/26/22 18:57 05/26/22 20:15 Temperature 97.5 F 98.3 F Pulse Rate 74 67 73 Respiratory Rate 18 15 16 Blood Pressure 129/84 121/74 Pulse Oximetry 99 96 Oxygen Delivery Method Room Air Room Air BMI result Body Mass Index 28.3 <NELSY Maldonado - Last Filed: 05/26/22 20:42> Vital Signs - 24 hr 05/26/22 17:40 05/26/22 18:57 05/26/22 20:15 Temperature 97.5 F 98.3 F Pulse Rate 74 67 73 Respiratory Rate 18 15 16 Blood Pressure 129/84 121/74 Pulse Oximetry 99 96 Oxygen Delivery Method Room Air Room Air BMI result Body Mass Index 28.3 <Sam Pederson MD - Last Filed: 05/26/22 21:31> Appearance: Alert. Oriented X3. No acute distress. ENT: Pharynx normal. Oral Mucosa moist inflamed nasal turbinate with clear discharge Neck: Normal inspection. Neck supple. CVS: Normal heart rate and rhythm. Pulses normal. Respiratory: No respiratory distress. Equal air entry bilateral, bilateral prolonged expiration Abdomen: Soft and nontender. Bowel sounds are present, Skin: Skin warm and dry. Normal skin color. Normal skin turgor. Extremities: No lower extremity edema. No calf tenderness Neuro: Oriented X 3. No motor deficit. <Sam Pederson MD - Last Filed: 05/26/22 21:31> Course Course Course Narrative: RME: 52 yold female presents to the ED for chest pain with pleurisy. patient states yesterday she was negative for covid, flu and strep throat at urgent care yesterday. EKG and labs ordered. <NELSY Maldonado - Last Filed: 05/26/22 20:42> Medications Administered Discontinued Medications Generic Name Dose Route Start Last Admin Trade Name Freq PRN Reason Stop Dose Admin Cefuroxime Axetil 500 mg 05/26/22 19:23 05/26/22 19:29 Cefuroxime Axetil 500 Mg Tablet PO 01/15/23 19:24 500 mg ONCE ONE Administration Albuterol Sulfate 2.5 mg/ 0 mg 05/26/22 19:19 05/26/22 20:12 Ipratropium [place] 0.5 mg INHALE 05/26/22 19:20 2.5 each ONCE ONE Administration Dexamethasone 10 mg 05/26/22 19:19 05/26/22 19:24 Dexamethasone 2 Mg Tablet PO 05/26/22 19:20 10 mg ONCE ONE Administration Guaifenesin/Codeine Phosphate 10 ml 05/26/22 19:20 05/26/22 19:24 Guaifen/Codeine Sf 200/20/10ml 10 Ml Liquid PO 05/26/22 19:21 10 ml ONCE ONE Administration Oxymetazoline HCl 2 spray 05/26/22 19:22 05/26/22 19:29 Oxymetazoline Hcl 0.05 % Nasal 15 Ml [place] NOSTRIL-B 05/26/22 19:23 2 spray ONCE ONE Administration <NELSY Maldonado - Last Filed: 05/26/22 20:42> Medications Administered Discontinued Medications Generic Name Dose Route Start Last Admin Trade Name Freq PRN Reason Stop Dose Admin Cefuroxime Axetil 500 mg 05/26/22 19:23 05/26/22 19:29 Cefuroxime Axetil 500 Mg Tablet PO 05/26/22 19:24 500 mg ONCE ONE Administration Albuterol Sulfate 2.5 mg/ 0 mg 05/26/22 19:19 05/26/22 20:12 Ipratropium [place] 0.5 mg INHALE 05/26/22 19:20 2.5 each ONCE ONE Administration Dexamethasone 10 mg 05/26/22 19:19 05/26/22 19:24 Dexamethasone 2 Mg Tablet PO 05/26/22 19:20 10 mg ONCE ONE Administration Guaifenesin/Codeine Phosphate 10 ml 05/26/22 19:20 05/26/22 19:24 Guaifen/Codeine Sf 200/20/10ml 10 Ml Liquid PO 05/26/22 19:21 10 ml ONCE ONE Administration Oxymetazoline HCl 2 spray 05/26/22 19:22 05/26/22 19:29 Oxymetazoline Hcl 0.05 % Nasal 15 Ml [place] NOSTRIL-B 05/26/22 19:23 2 spray ONCE ONE Administration <Sam Pederson MD - Last Filed: 05/26/22 21:31> Medical Decision Making Medical Decision Making [facility] Narrative: Patient with allergic rhinitis with bronchitis likely got worse after having a cat at home discharge patient home on steroids, inhaler <Sam Pederson MD - Last Filed: 05/26/22 21:31> Lab Data [facility] Lab Attestation statement: I reviewed the patient's lab results. <Sam Pederson MD - Last Filed: 05/26/22 21:31> Result Diagrams: 05/26/22 18:43 05/26/22 18:43 <NELSY Maldonado - Last Filed: 05/26/22 20:42> Labs: Lab Results 05/26/22 05/26/22 05/26/22 Range/Units 18:43 18:43 18:43 WBC 10.3 (4.8-10.8) X10*3/uL RBC 3.95 L (4.20-5.50) X10*6/uL Hgb 13.0 (12.0-16.0) g/dl Hct 38.6 (37.0-47.0) % MCV 97.7 (80.0-98.0) fL MCH 32.9 (27.0-33.0) pg MCHC 33.7 (31.0-35.0) g/dl RDW 12.9 (11.0-16.0) % Plt Count 321 (160-400) X10*3/uL MPV 10.3 (9.4-12.3) fL Immature Gran % (Auto) 0.3 (0.0-0.4) % Neut % (Auto) 72.2 (45-73) % Lymph % (Auto) 19.1 L (20-40) % [place] % (Auto) 6.0 (2-11) % Eos % (Auto) 1.9 (0-4) % Baso % (Auto) 0.5 (0-2) % Lymph # (Auto) 2.0 (1.2-4.9) X10*3/uL [place] # (Auto) 0.6 (0.1-1.2) X10*3/uL Eos # (Auto) 0.2 (0.0-0.4) X10*3/uL Baso # (Auto) 0.1 (0.0-0.2) X10*3/uL Abs Immat Gran (auto) 0.03 (0.00-0.03) X10*3/uL Absolute Neuts (auto) 7.5 (2.0-8.3) x10*3/uL Absolute Nucleated RBC 0.000 (0.0-0.012) X10*3/uL Nucleated RBC % (auto) 0.0 (0.0-0.2) /100WBC PT 11.5 (10.0-13.1) SEC INR 1.0 (0.9-1.1) APTT 32.1 (26.0-36.4) SEC D-Dimer High Sensitivty 250 NG/ML Sodium 138 (135-145) mmol/L Potassium 3.2 L (3.3-5.1) mmol/L Chloride 107 (96-108) mmol/L Carbon Dioxide 24 (22-29) mmol/L Anion Gap 10 L (12-20) BUN 21 H (9-16) mg/dL Creatinine 0.82 (0.5-1.4) mg/dL Estim Creat Clear Calc 67.1 Estimated GFR > 60 Random Glucose 98 (60-115) mg/dL Calcium 9.2 (8.4-10.2) mg/dL Total Bilirubin 0.5 (0.0-1.0) mg/dL AST 14 (5-31) U/L ALT 15 (0-31) U/L Alkaline Phosphatase 68 (39-117) U/L Troponin I High Sens (<3.5-17.0) ng/L B-Natriuretic Peptide (<100) pg/mL Total Protein 6.8 (6.5-8.0) g/dL Albumin 4.1 (3.5-5.0) g/dL Influenza Type A (PCR) (Negative) Influenza Type B (PCR) (Negative) RSV RNA Qual (PCR) (Negative) SARS-CoV-2 RNA (RT-PCR) (Negative) 05/26/22 05/26/22 05/26/22 Range/Units 18:43 18:43 18:43 WBC (4.8-10.8) X10*3/uL RBC (4.20-5.50) X10*6/uL Hgb (12.0-16.0) g/dl Hct (37.0-47.0) % MCV (80.0-98.0) fL MCH (27.0-33.0) pg MCHC (31.0-35.0) g/dl RDW (11.0-16.0) % Plt Count (160-400) X10*3/uL MPV (9.4-12.3) fL Immature Gran % (Auto) (0.0-0.4) % Neut % (Auto) (45-73) % Lymph % (Auto) (20-40) % [place] % (Auto) (2-11) % Eos % (Auto) (0-4) % Baso % (Auto) (0-2) % Lymph # (Auto) (1.2-4.9) X10*3/uL [place] # (Auto) (0.1-1.2) X10*3/uL Eos # (Auto) (0.0-0.4) X10*3/uL Baso # (Auto) (0.0-0.2) X10*3/uL Abs Immat Gran (auto) (0.00-0.03) X10*3/uL Absolute Neuts (auto) (2.0-8.3) x10*3/uL Absolute Nucleated RBC (0.0-0.012) X10*3/uL Nucleated RBC % (auto) (0.0-0.2) /100WBC PT (10.0-13.1) SEC INR (0.9-1.1) APTT (26.0-36.4) SEC D-Dimer High Sensitivty NG/ML Sodium (135-145) mmol/L Potassium (3.3-5.1) mmol/L Chloride (96-108) mmol/L Carbon Dioxide (22-29) mmol/L Anion Gap (12-20) BUN (9-16) mg/dL Creatinine (0.5-1.4) mg/dL Estim Creat Clear Calc Estimated GFR Random Glucose (60-115) mg/dL Calcium (8.4-10.2) mg/dL Total Bilirubin (0.0-1.0) mg/dL AST (5-31) U/L ALT (0-31) U/L Alkaline Phosphatase (39-117) U/L Troponin I High Sens < 3.5 (<3.5-17.0) ng/L B-Natriuretic Peptide < 10 (<100) pg/mL Total Protein (6.5-8.0) g/dL Albumin (3.5-5.0) g/dL Influenza Type A (PCR) NEGATIVE (Negative) Influenza Type B (PCR) NEGATIVE (Negative) RSV RNA Qual (PCR) NEGATIVE (Negative) SARS-CoV-2 RNA (RT-PCR) NEGATIVE (Negative) <NELSY Maldonado - Last Filed: 05/26/22 20:42> Lab Results 05/26/22 05/26/22 05/26/22 Range/Units 18:43 18:43 18:43 WBC 10.3 (4.8-10.8) X10*3/uL RBC 3.95 L (4.20-5.50) X10*6/uL Hgb 13.0 (12.0-16.0) g/dl Hct 38.6 (37.0-47.0) % MCV 97.7 (80.0-98.0) fL MCH 32.9 (27.0-33.0) pg MCHC 33.7 (31.0-35.0) g/dl RDW 12.9 (11.0-16.0) % Plt Count 321 (160-400) X10*3/uL MPV 10.3 (9.4-12.3) fL Immature Gran % (Auto) 0.3 (0.0-0.4) % Neut % (Auto) 72.2 (45-73) % Lymph % (Auto) 19.1 L (20-40) % [place] % (Auto) 6.0 (2-11) % Eos % (Auto) 1.9 (0-4) % Baso % (Auto) 0.5 (0-2) % Lymph # (Auto) 2.0 (1.2-4.9) X10*3/uL [place] # (Auto) 0.6 (0.1-1.2) X10*3/uL Eos # (Auto) 0.2 (0.0-0.4) X10*3/uL Baso # (Auto) 0.1 (0.0-0.2) X10*3/uL Abs Immat Gran (auto) 0.03 (0.00-0.03) X10*3/uL Absolute Neuts (auto) 7.5 (2.0-8.3) x10*3/uL Absolute Nucleated RBC 0.000 (0.0-0.012) X10*3/uL Nucleated RBC % (auto) 0.0 (0.0-0.2) /100WBC PT 11.5 (10.0-13.1) SEC INR 1.0 (0.9-1.1) APTT 32.1 (26.0-36.4) SEC D-Dimer High Sensitivty 250 NG/ML Sodium 138 (135-145) mmol/L Potassium 3.2 L (3.3-5.1) mmol/L Chloride 107 (96-108) mmol/L Carbon Dioxide 24 (22-29) mmol/L Anion Gap 10 L (12-20) BUN 21 H (9-16) mg/dL Creatinine 0.82 (0.5-1.4) mg/dL Estim Creat Clear Calc 67.1 Estimated GFR > 60 Random Glucose 98 (60-115) mg/dL Calcium 9.2 (8.4-10.2) mg/dL Total Bilirubin 0.5 (0.0-1.0) mg/dL AST 14 (5-31) U/L ALT 15 (0-31) U/L Alkaline Phosphatase 68 (39-117) U/L Troponin I High Sens (<3.5-17.0) ng/L B-Natriuretic Peptide (<100) pg/mL Total Protein 6.8 (6.5-8.0) g/dL Albumin 4.1 (3.5-5.0) g/dL Influenza Type A (PCR) (Negative) Influenza Type B (PCR) (Negative) RSV RNA Qual (PCR) (Negative) SARS-CoV-2 RNA (RT-PCR) (Negative) 05/26/22 05/26/22 05/26/22 Range/Units 18:43 18:43 18:43 WBC (4.8-10.8) X10*3/uL RBC (4.20-5.50) X10*6/uL Hgb (12.0-16.0) g/dl Hct (37.0-47.0) % MCV (80.0-98.0) fL MCH (27.0-33.0) pg MCHC (31.0-35.0) g/dl RDW (11.0-16.0) % Plt Count (160-400) X10*3/uL MPV (9.4-12.3) fL Immature Gran % (Auto) (0.0-0.4) % Neut % (Auto) (45-73) % Lymph % (Auto) (20-40) % [place] % (Auto) (2-11) % Eos % (Auto) (0-4) % Baso % (Auto) (0-2) % Lymph # (Auto) (1.2-4.9) X10*3/uL [place] # (Auto) (0.1-1.2) X10*3/uL Eos # (Auto) (0.0-0.4) X10*3/uL Baso # (Auto) (0.0-0.2) X10*3/uL Abs Immat Gran (auto) (0.00-0.03) X10*3/uL Absolute Neuts (auto) (2.0-8.3) x10*3/uL Absolute Nucleated RBC (0.0-0.012) X10*3/uL Nucleated RBC % (auto) (0.0-0.2) /100WBC PT (10.0-13.1) SEC INR (0.9-1.1) APTT (26.0-36.4) SEC D-Dimer High Sensitivty NG/ML Sodium (135-145) mmol/L Potassium (3.3-5.1) mmol/L Chloride (96-108) mmol/L Carbon Dioxide (22-29) mmol/L Anion Gap (12-20) BUN (9-16) mg/dL Creatinine (0.5-1.4) mg/dL Estim Creat Clear Calc Estimated GFR Random Glucose (60-115) mg/dL Calcium (8.4-10.2) mg/dL Total Bilirubin (0.0-1.0) mg/dL AST (5-31) U/L ALT (0-31) U/L Alkaline Phosphatase (39-117) U/L Troponin I High Sens < 3.5 (<3.5-17.0) ng/L B-Natriuretic Peptide < 10 (<100) pg/mL Total Protein (6.5-8.0) g/dL Albumin (3.5-5.0) g/dL Influenza Type A (PCR) NEGATIVE (Negative) Influenza Type B (PCR) NEGATIVE (Negative) RSV RNA Qual (PCR) NEGATIVE (Negative) SARS-CoV-2 RNA (RT-PCR) NEGATIVE (Negative) <Sam Pederson MD - Last Filed: 05/26/22 21:31> Discharge Plan Discharge Clinical Impression: Allergic rhinitis, Acute bronchitis <NELSY Maldonado - Last Filed: 05/26/22 20:42> Patient Disposition: Home, Self-Care <NELSY Maldonado - Last Filed: 05/26/22 20:42> Instructions: Acute Bronchitis (ED), Allergic Rhinitis (ED) <NELSY Maldonado - Last Filed: 05/26/22 20:42> Additional Instructions: You have likely allergy to cats try to stay away from CAT Take antibiotic, prednisone, nasal spray as prescribed Albuterol inhaler as prescribed Cough drops as prescribed Follow with PCP <NELSY Maldonado - Last Filed: 05/26/22 20:42> Prescriptions: New benzonatate 200 mg capsule 200 mg PO TID PRN (Reason: cough) Qty: 30 0RF prednisone 20 mg tablet 40 mg PO DAILY Qty: 10 0RF cefuroxime axetil 500 mg tablet 500 mg PO BID Qty: 20 0RF albuterol sulfate [ProAir HFA] 90 mcg/actuation HFA aerosol inhaler 2 puff inhalation Q4-6H PRN (Reason: shortness of breath or wheezing) Qty: 8.5 0RF fluticasone propionate 50 mcg/actuation spray,suspension 2 spray intranasal DAILY Qty: 16 0RF Rx Instructions: administer into each nostril No Action Calmoseptine 0.44-20.6 % ointment in packet 1 appl topical QID PRN (Reason: wound healing) Qty: 504 0RF tizanidine 4 mg tablet 4 mg PO Q8H PRN (Reason: muscle spasticity) Qty: 90 8RF linaclotide 72 mcg capsule 72 mcg PO DAILY Qty: 30 3RF ondansetron 4 mg tablet,disintegrating 4 mg PO Q8H Qty: 30 1RF pantoprazole 40 mg tablet,delayed release (DR/EC) 40 mg PO BID Qty: 60 2RF sucralfate 100 mg/mL suspension 10 ml PO BID Qty: 1000 0RF ondansetron HCl 4 mg tablet 1 tab PO Q8H PRN (Reason: nausea) sumatriptan succinate 50 mg tablet 1 tab PO DAILY PRN (Reason: Migraine Headache) cyanocobalamin (vitamin B-12) 1,000 mcg tablet 1 tab PO DAILY topiramate 25 mg tablet 1 tab PO BEDTIME levothyroxine 75 mcg tablet 1 tab PO DAILY lorazepam [Ativan] 0.5 mg tablet 1 - 2 tab PO DAILY PRN (Reason: anxiety) fluoxetine 10 mg capsule 10 mg PO Q OTHER DAY sertraline [Zoloft] 25 mg tablet 1 tab PO BEDTIME lisinopril-hydrochlorothiazide 10-12.5 mg tablet 1 tab PO DAILY Restasis 0.05 % dropperette 1 drp ophthalmic (eye) BID sucralfate [Carafate] 100 mg/mL suspension 10 ml PO BID 14 Days Qty: 280 0RF acetaminophen [Tylenol Extra Strength] 500 mg tablet 500 mg PO Q6H PRN (Reason: pain or fever) Qty: 20 0RF lidocaine [Lidoderm] 5 % adhesive patch,medicated 1 patch topical DAILY MDD remove after 12 hours PRN (Reason: pain) Qty: 30 0RF Rx Instructions: leave on most painful area for up to 12 hrs naproxen 500 mg tablet 500 mg PO BID PRN (Reason: pain) 10 Days Qty: 20 0RF cyclobenzaprine 5 mg tablet 5 mg PO Q8H PRN (Reason: pain (scale score 7-10)) 5 Days Qty: 14 0RF oxycodone-acetaminophen [Percocet] 5-325 mg tablet 1 tab PO Q4-6H PRN (Reason: pain (scale score 7-10)) Qty: 30 0RF docusate sodium [Colace] 100 mg capsule 100 mg PO BID Qty: 60 2RF celecoxib 100 mg capsule 100 mg PO BID Citrucel 500 mg tablet 500 mg PO BID Qty: 60 5RF polyethylene glycol 3350 [Miralax] 17 gram powder in packet 17 g PO DAILY Qty: 30 5RF docusate sodium [Colace] 100 mg capsule 200 mg PO BEDTIME Qty: 60 5RF buspirone 5 mg tablet 5 mg PO BID Qty: 10 0RF <NELSY Maldonado - Last Filed: 05/26/22 20:42> Interventions: ED Discharge Assessment Last Done: 05/26/22 20:35 <NELSY Maldonado - Last Filed: 05/26/22 20:42> Discharge Date/Time: 05/26/22 20:36 <NELSY Maldonado - Last Filed: 05/26/22 20:42>
[2022-05-26 18:47] LABS: MANUAL DIFF FLAG NO
[2022-05-26 18:53] LABS: Prothrombin Time 11.5 SEC (10.0-13.1)
[2022-05-26 18:55] LABS: D Dimer High Sensitivity 250 NG/ML
[2022-05-26 18:56] LABS: Partial Thromboplastin Time 32.1 SEC (26.0-36.4)
[2022-05-26 18:57] VITALS: BP 121/74; PULSE 67; RESP 15; TEMP 36.8; O2SAT 96
--- NOTE | 2022-05-26 19:00 | PC.NURSE ---
pt resting on stretcher at this time, spouse at bedside. All lab work and EKG complete
[2022-05-26 19:01] LABS: Basophils Absolute Auto 0.1 X10*3/uL (0.0-0.2); Basophils Percent Auto 0.5 % (0-2); Eosinophils Absolute Auto 0.2 X10*3/uL (0.0-0.4); Eosinophils Percent Auto 1.9 % (0-4); Hematocrit 38.6 % (37.0-47.0); Imm Gran Abs Auto 0.03 X10*3/uL (0.00-0.03); Imm Gran Pct Auto 0.3 % (0.0-0.4); Lymphocytes Percent Auto 19.1 % (20-40); Mean Corpuscular HGB Conc 33.7 g/dl (31.0-35.0); Mean Corpuscular Hemoglobin 32.9 pg (27.0-33.0); Mean Corpuscular Volume 97.7 fL (80.0-98.0); Mean Platelet Volume 10.3 fL (9.4-12.3); Monocytes Absolute Auto 0.6 X10*3/uL (0.1-1.2); Neutrophils Absolute Auto 7.5 x10*3/uL (2.0-8.3); Neutrophils Percent Auto 72.2 % (45-73); Platelet Count 321 X10*3/uL (160-400); Red Blood Count 3.95 X10*6/uL (4.20-5.50); Red Cell Distribution Width 12.9 % (11.0-16.0); White Blood Count 10.3 X10*3/uL (4.8-10.8)
[2022-05-26 19:10] LABS: Alanine Aminotransferase 15 U/L (0-31); Albumin Level 4.1 g/dL (3.5-5.0); Alkaline Phosphatase 68 U/L (39-117); Anion Gap 10 (12-20); Aspartate Amino Transferase 14 U/L (5-31); Bilirubin Total 0.5 mg/dL (0.0-1.0); Blood Urea Nitrogen 21 mg/dL (9-16); Calcium 9.2 mg/dL (8.4-10.2); Carbon Dioxide 24 mmol/L (22-29); Chloride 107 mmol/L (96-108); Creatinine Clr Calc Pharmacy 67.1; Estimated Glomerular Filt Rate > 60; Glucose Random 98 mg/dL (60-115); Potassium 3.2 mmol/L (3.3-5.1); Sodium 138 mmol/L (135-145); Total Protein 6.8 g/dL (6.5-8.0)
[2022-05-26 19:13] LABS: B Type Natriuretic Peptide < 10 pg/mL (<100)
[2022-05-26 19:14] LABS: Troponin-I High Sensitivity < 3.5 ng/L (<3.5-17.0)
[2022-05-26] MEDS: guaiFEN/Codeine SF 200/20/10ML 10 ML LIQUID PO (19:24)
[2022-05-26] MEDS: dexAMETHasone 2 MG TABLET 10 MG PO (19:24)
[2022-05-26 19:27] LABS: Influenza A PCR NEGATIVE (Negative); Influenza B PCR NEGATIVE (Negative); Resp Syncy Virus RNA Qual PCR NEGATIVE (Negative); SARS COV2 PCR INHOUSE NEGATIVE (Negative)
[2022-05-26] MEDS: Oxymetazoline HCl 0.05 % Nasal 15 ML SPRAY 2 SPRAY NOSTRIL-B (19:29)
--- NOTE | 2022-05-26 19:47 | PC.NURSE ---
this RN called respiratory for zulema
[2022-05-26 20:15] VITALS: PULSE 73; RESP 16; O2SAT 98
== END 2022-05-26 20:36 | disposition home or self-care (01) ==
PROVIDERS: Physician Assistant; Emergency Provider Internal Medicine
DX: J45.909 Unspecified asthma, uncomplicated (principal); R07.89 Other chest pain; R06.02 Shortness of breath; Z20.822 Contact with and (suspected) exposure to COVID-19; Z20.828 Contact with and (suspected) exposure to other viral communicable diseases; Z79.899 Other long term (current) drug therapy
CPT/HCPCS: 0241U; 36415; 71045; 80053; 83880; 84484; 85025; 85379; 85610; 85730; 93005; 94640; 99284; J8540

== ENCOUNTER 2025-05-03 13:04 | Outpatient (AMB) | payer OTHER, SELFPAY ==
--- NOTE | 2025-05-03 13:11 | MHC.OFFVIS ---
Intake Visit Reasons: Migranes Building Construction Superintendent Required: Yes Building Construction Superintendent Services: Building Construction Superintendent Offered & Declined (daughter to translate) Accompanied by: Daughter Allergies mushroom Allergy (Mild, Verified 05/03/25 13:15) BECOMES UNCONSIOUS amoxicillin (AMOXICILLIN) Allergy (Unknown, Verified 05/03/25 13:15) RASH Medication List - Last Reconciled 05/03/25 by Kanika Ovalle CNP acetaminophen (Tylenol Extra Strength) 500 mg PO Q6H PRN albuterol sulfate 90 mcg/actuation (ProAir HFA) 2 puffs inhalation Q4-6H PRN benzonatate 200 mg PO TID PRN buspirone 5 mg PO BID cefuroxime axetil 500 mg PO BID celecoxib 100 mg PO BID cyanocobalamin (vitamin B-12) 1 tab PO DAILY cyclobenzaprine 5 mg PO Q8H PRN 5 days cyclosporine 0.05% (Restasis) 1 drp ophthalmic (eye) BID docusate sodium (Colace) 100 mg PO BID docusate sodium (Colace) 200 mg (2 x 100 mg) PO BEDTIME fluoxetine 10 mg PO Q OTHER DAY fluticasone propionate 50 mcg/actuation 2 sprays intranasal DAILY levothyroxine 1 tab PO DAILY lidocaine 5% (Lidoderm) 1 patch topical DAILY PRN MDD remove after 12 hours linaclotide 72 mcg PO DAILY lisinopril-hydrochlorothiazide 10-12.5 mg 1 tab PO DAILY lorazepam (Ativan) 1 - 2 tabs PO DAILY PRN menthol-zinc oxide 0.44-20.6 % (Calmoseptine) 1 appl topical QID PRN methylcellulose (laxative) (Citrucel) 500 mg PO BID naproxen 500 mg PO BID PRN 10 days ondansetron 4 mg PO Q8H ondansetron HCl 1 tab PO Q8H PRN oxycodone-acetaminophen 5-325 mg (Percocet) 1 tab PO Q4-6H PRN pantoprazole 40 mg PO BID polyethylene glycol 3350 (Miralax) 17 grams PO DAILY prednisone 40 mg (2 x 20 mg) PO DAILY sertraline (Zoloft) 1 tab PO BEDTIME sucralfate (Carafate) 10 mL PO BID 14 days sucralfate 10 mL PO BID sumatriptan succinate 50 mg PO DAILY PRN tizanidine 4 mg PO Q8H PRN topiramate 25 mg PO BEDTIME HPI Comments Details: 54-year-old woman with OCD, depression, anxiety, and migraine headaches. She was doing okay. Migraines were better with topiramate. Migraines happened about 3x/month with photophobia and sonophobia. Sumatriptan as needed helped. Sleep was up and down. Mood was okay. [facility] Medical History (Updated 05/03/25 @ 13:14 by Kanika Ovalle CNP) PONV (postoperative nausea and vomiting) Hemorrhoids with complication Hypothyroid GERD (gastroesophageal reflux disease) HTN (hypertension) Tension headache Migraine headache Fibromyalgia Anxiety Depression Spondylosis of cervical region without myelopathy or radiculopathy Surgical History History of hemorrhoidectomy History of esophagogastroduodenoscopy (EGD) Hx of colonoscopy Social History Household Members Other:: 2 kids Alcohol intake: never Patient Tobacco Use Status: Never used Tobacco Current occupational status: unemployed Review of Systems Const Denies chills, Denies daytime sleepiness, Reports difficulty sleeping, Denies fatigue, Denies fever(s), Denies frequent falls, Reports headache(s), Denies increased appetite, Denies poor appetite, Denies snoring, Denies weakness, Denies weight gain and Denies weight loss Eyes Denies loss of vision ENT Denies vertigo, Denies dizziness and Reports headache(s) Card Denies chest pain at rest, Denies chest pain with activity, Denies syncope, Denies leg edema and Denies palpitations Resp Denies snoring GI Denies constipation, Denies heartburn, Denies diarrhea and Denies nausea Denies urinary frequency, Denies urinary incontinence and Denies urinary urgency Musc Denies abnormal gait, Denies numbness and Denies tingling Skin/Breast Denies dry skin and Denies rash Neuro Denies abnormal gait, Denies vertigo, Denies dizziness, Denies syncope, Denies frequent falls, Reports headache(s), Denies lack of coordination, Denies loss of vision, Denies memory loss, Denies numbness, Denies restless legs, Denies seizure-like activity, Denies tingling, Denies paresthesias, Denies tremor(s) and Denies weakness Psych Reports anxiety, Reports depression, Denies auditory hallucinations, Denies memory loss, Denies visual hallucinations and Denies suicidal ideation Endo Denies fatigue and Denies palpitations Physical Exam Const Other: General Appearance:? normal, in no acute distress. Skin:? no rashes, no significant birthmarks. Heart:? S1, S2 normal, no murmurs. Lungs:? clear anteriorly and posteriorly. Extremities:? no edema. Psych:? alert, oriented, cognitive function intact, cooperative with exam. Neuro Other: Mental Status:?Normal attention, orientation, memory and affect.? Cranial Nerves:?Pupils are equal, round and reactive to light. External occular muscles are intact. Visual estes are full. Face is symmetrical. Facial sensations are normal. Tongue is midline. Palate elevates symmetrically. Shoulder shrugging is normal. Hearing to bedside conversation is normal. Sensory Exam:?....? Coordination:?No ataxia,?no titubation.? Gait Exam: Within normal limits. Cerebellar Signs:?[id number] is okay. Extrapyramidal System:?No tremor, rigidity with normal facial expressions.? Pronator Drift:?Not present.? Involuntary Movements:?No tremors seen.? Speech:?Normal.? Assessment & Plan Assessment & Plan (1) Migraine headache: Code(s): G43.909 - Migraine, unspecified, not intractable, without status migrainosus Category: Medical Qualifiers: Migraine type: unspecified Status migrainosus presence: without status migrainosus Intractability: not intractable Qualified Code(s): G43.909 - Migraine, unspecified, not intractable, without status migrainosus Plan: Continue topiramate 25mg 1 tablet at bedtime. Continue sumatriptan 50mg 1 tablet as needed for migraine. Follow up in 6 months or sooner as needed. Medications: New sumatriptan succinate take 1 tab at onset of headache; if no relief may repeat 1 tab after at least 2 hrs; PO 10 tabs 5RF 30 days Refilled topiramate 25 mg PO BEDTIME 90 tabs 1RF Discontinued sumatriptan succinate Discontinued Reason: Order 50 mg PO DAILY PRN 10 tabs 3RF Migraine Headache Coding Level of Care Code Est Pt Level 4 (76795) Diagnoses Migraine without status migrainosus, not intractable, unspecified migraine type G43.909 Migraine type: unspecified Status migrainosus presence: without status migrainosus Intractability: not intractable
--- OUTSIDE RECORDS SUMMARY | 2025-05-03 14:07 | XMS_ITS | Encounter Summary ---
Author Organization [facility] [place] [address] Care Team Providers Care Waterproofing Machine Operator Name Role Phone Harjit Quick MD Primary Care Provider [phone]- [phone] Encounter Details Date Type Department Care Team (Late st Contact Info) Description 03/31/2025 Results Follow-Up Adult Medicine [facility] [address] [facility] [place] [place] [phone] Harijt Quick MD [address] [facility] [place] Social History Tobacco Use Types Packs/Day Years Used Date Smoking Tobacco: Never Smokeless Tobacco: Never Alcohol Use Standard Drinks/Week Comments No 0 (1 standard drink = 0.6 oz pur e alcohol) Housing Instability Answer Date Recorde d Are you worried that in the next 2 months you may not have stable housing? Unable to respond 06/21/2024 Food Access & Nutrition Answer Date Rec orded Do you have access to a vari ety of food including fruits and vegetables? Unable to respond 06/21/2024 Health Literacy Answer Date Recorded How often do you need to hav e someone help you when you read instructions, pamphlets, or other written material from your doctor or pharmacy? Unable to respond 06/21/2024 Caregiver: How often do you need to have someone help you when you read instructions, pamphlets, or other written material from your doctor or pharmacy? Not on file 025 Financial Risk Answer Date Recorded How hard is it for you to pa y for the very basics like food, housing, medical care, and air conditioning / heating? Unable to respond 06/21/2024 Transportation Answer Date Recorded Has the lack of transportati on kept you from meetings, work, or from getting things needed for daily living? Unable to respond 06/21/2024 Has the lack of transportati on kept you from medical appointments or from getting medications? Unable to respond 06/21/2024 Social Isolation Answer Date Recorded How often do you feel lonely or isolated from those around you? Unable to respond 06/21/2024 Food Risk Answer Date Recorded Within the past 12 months we worried whether our food would run out before we got money to buy more. Never true 06/21/2024 Within the past 12 months th e food we bought just didn't last and we didn't have money to get more. Never true 06/21/2024 Dependent Care Answer Date Recorded Do you need help finding or paying for care for your loved ones. For example, childcare teacher or elderly care for an older adult? Unable to respond 06/21/2024 Education Answer Date Recorded Do you think completing more education or training, like finishing a GED, going to college, or learning a trade, would be helpful for you? Unable to respond 06/21/2024 Employment and Income Answer Date Recor ded During the last four weeks, have you been actively looking for work? Unable to respond 06/21/2024 Living Situation Answer Date Recorded What is your living situation? Unrecognized valu e 06/21/2024 Comments Unknown Sex and Gender Information Value Date Recorded Sex Assigned at Female 08/27/2024 1:07 PM EDT Legal Sex Female 2:21 PM EST Gender Identity Female 08/27/2024 1:07 PM EDT Sexual Orientation Straight 08/27/2024 1: 07 PM EDT documented as of this encounter Plan of Treatment Upcoming Encounters Date Type Department Care Team (Late st Contact Info) Description 05/04/2025 10:00 AM EST Office Visit Adult Medicine [address] [phone] Latoya Dow PA [address] [place], [place] 06/14/2025 4:30 PM EST Office Visit Adult [address] [phone] Harjit Quick MD [address] [place] [address] Scheduled Orders Name Type Priority Associated Diagnoses Orde r Schedule Reticulocyte count Lab Routine Anemia, unspecified type 1 Occurrences starting 04/01/2025 until 04/01/2026 Ferritin Lab Routine Anemia, unspecified type 1 Occurrences starting 04/01/2025 until 04/01/2026 Iron and TIBC Lab Routine Anemia, unspecified type 1 Occurrences starting 04/01/2025 until 04/01/2026 Folate Lab Routine Anemia, unspecified type 1 Occurrences starting 04/01/2025 until 04/01/2026 Vitamin B12 Lab Routine Anemia, unspecified type 1 Occurrences starting 04/01/2025 until 04/01/2026 CBC and differential Lab Routine Anemia, unspecified type 1 Occurrences starting 04/01/2025 until 04/01/2026 documented as of this encounter Visit Diagnoses Diagnosis Anemia, unspecified type- Primary documented in this encounter Additional Health Concerns Infection Onset Date Last Indicated Resolved Time Herpes simplex 07/05/2024 07/05/2024 Assessment Noted Time PHQ-9 Depression Total Score: 3 06/21/19 8:27 PM EST documented as of this encounter Care Teams Waterproofing Machine Operator Relationship Specialty Start Date End Date Harjit Quick MD [address] [place] [address] PCP - General Internal Medicine 10/19/24 documented as of this encounter
--- OUTSIDE RECORDS SUMMARY | 2025-05-03 14:07 | XMS_ITS | Clinical Summary ---
Author Organization [facility] Address [address] [place] [address] Phone Care Team Providers Care Grocery Team Member Name Role Phone Harjit Quick MD Primary Care Provider Encounters Date Type Department Care Team Description 03/16/2025 Telephone Health Outcomes [facility] [address] [phone] Ismael Teixeira from Last 3 Months Social History Tobacco Use Types Packs/Day Years Used Date Smoking Tobacco: Never Assessed Comments Unknown Sex and Gender Information Value Date Recorded Sex Assigned at Not on file Legal Sex Female 2:04 PM EDT Gender Identity Not on file Sexual Orientation Not on file Plan of Treatment Not on file Medical Devices Not on file Insurance 22 TATYANA MARQUES [place] [facility] NON NSPG [facility]CP [facility] PCP [employer] [facility] NON NSPG PCP S[place] [employer] [facility] NON NSPG PCP [place] [address] Care Teams Grocery Team Member Relationship Specialty Start Date End Date Harjit Quick MD [address] [place] [address] PCP - General Internal Medicine 01/03/25 Additional Source Comments The information contained in this document represents components of the legal health record. It is not the complete legal health record.[facility]
--- OUTSIDE RECORDS SUMMARY | 2025-05-03 14:07 | XMS_ITS | Clinical Summary ---
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 OTC Active SUMAtriptan (IMITREX) 50 mg tablet Take 1 tablet (50 mg total) by mouth 1 (one) time if needed for migraine. Dr. Burgess, Neurologist Active topiramate (TOPAMAX) 25 mg tablet Take 1 tablet (25 mg total) by mouth 1 (one) time each day. Prescribed by , Neurologist Active cyanocobalamin (Vitamin B-12) 1,000 mcg tablet Take 1 tablet (1,000 mcg total) by mouth 1 (one) time each day. 30 each 12/03/19 25 026 Active cholecalciferol (Vitamin D3) 50 mcg (2,000 unit) capsule Take 1 capsule (2,000 Units total) by mouth 1 (one) time each day. 30 each 12/03/19 026 Active escitalopram (LEXAPRO) 5 mg tablet Take 1 tablet (5 mg total) by mouth at bedtime. Prescribed by Mental Health Provider Active hydrOXYzine HCL (ATARAX) 25 mg tablet Take 1 tablet (25 mg total) by mouth at bedtime. Prescribed by Mental Health Provider Active senna-docusate (PERICOLACE) 8.6-50 mg per tablet Take 1 tablet by mouth 1 (one) time each day. 30 each 01/13/20 25 026 Active levothyroxine (SYNTHROID, LEVOTHROID) 88 mcg tablet TAKE 1 TABLET BY MOUTH 1 TIME EACH DAY. 90 tablet 1 03/14/20 25 Active lisinopril-hydr oCHLOROthiazide (PRINZIDE,ZESTO RETIC) 20-25 mg per tablet Take 1 tablet by mouth 1 (one) time each day. 90 each 03/29/20 25 026 Active omeprazole (PriLOSEC) [address] capsuleIndicati ons:Gastro-esop hageal reflux disease without esophagitis TAKE 1 CAPSULE BY MOUTH 1 TIME EACH DAY. 90 capsule 1 04/11/20 25 Active ferrous sulfate 325 mg (65 mg elemental iron) tablet TAKE 1 TABLET BY MOUTH 3 TIMES A DAY WITH FOOD DO NOT CRUSH CHEW OR SPLIT 270 tablet 1 04/13/20 25 Active omeprazole (PriLOSEC) [address] capsuleIndicati ons:Gastro-esop hageal reflux disease without esophagitis Take 1 capsule (20 mg total) by mouth 1 (one) time each day. 90 capsule 01/08/20 25 025 Discontinued ferrous sulfate 325 mg (65 mg iron) EC tablet Take 1 tablet (325 mg total) by mouth 3 (three) times a day with meals. Do not crush, chew, or split. 90 each 2 01/13/20 25 025 Discontinued Active Problems Problem Noted Date Diagnosed Date Pain of both heels 12/02/2024 Weight gain 12/02/2024 Spondylolisthesis at L4-L5 level 05/08/2023 Low HDL (under 40) 01/21/2023 Lumbar radiculopathy, acute 10/25/2022 Overview (03/01/2024): Last Assessment & Plan: Ms. Cerda continues to have back pain down her right leg with independent right knee pain. She has not scheduled her total knee replacement and she has not started physical therapy for her lower back as she was afraid it would make her pain worse. She currently plans to travel to [facility] for the remainder of this month. They are here with further questions regarding the proposed fusion surgery which is an L5-S1 ALIF. On exam, seated SLR is positive on the right at 90 degrees, strength 5/5, sensation light touch intact, gait is steady. Using a spine model, I again described the degenerative changes at L5-S1 with the right foraminal stenosis from the disc bulge. Specifically, if we performed a right sided decompression, the benefits will be short-lived as the disc will continue to wear out and collapse. All questions were answered she may try physical therapy upon her return and will let us know if she wishes to proceed with surgery in the future. Assessment & Plan (01/11/2025 2:00 PM EDT): Patient is s/p left L5-S1 minimally invasive discectomy 11/2022. She has seen Dr. Quintana multiple times since then, was having increased low back pain and right leg pain, L5-S1 DDD, Dr. Quintana offered her L5-S1 ALIF, patient had not been ready yet to decide on surgery. She follows up today because she has persistent low back pain, on a good day 3-4/10 at best, otherwise she would rate her back pain 8/10. She cannot stand more than 2 to 3 minutes, has difficulty walking distances, has been walking with a limp, tends to hold onto her 's arm when walking. She notes numbness tingling in all digits, pain down the lateral right leg that she would rate 6- 8/10, depending on the day. She has been using NSAIDs like Motrin/Aleve. She just completed physical therapy in November, does feel it helps somewhat, but just temporarily. Patient wants to get a second opinion with Dr. Muller at [facility], they will not see her till she has an updated lumbar spine MRI. Patient had lumbar spine MRI 05/21/2023 [facility] that shows significant loss of disc height L5-S1, postop changes left L5-S1. I reviewed MRI images with patient and her on the computer. Ms. Cerda has persistent low back pain affecting her ability to stand and walk, significant right leg pain. Dr. Quintana would like me to order updated lumbar spine MRI to see if patient has nerve root compression, and any progression of her L5-S1 DDD before making any surgical recommendations. All questions answered. Patient's daughter Rachele and acted as laborer when needed. They did not want [employer] laborer. Constipation, chronic 05/28/2021 Overview (03/01/2024): Followed by [facility] Uterine leiomyoma 09/05/2020 Cervical radiculopathy 06/22/2019 Essential hypertension 12/10/2018 Sprain of lumbosacral joint or ligament 04/08/20 18 Sprain of sacroiliac ligament 04/08/2018 Primary osteoarthritis of both knees 08/29/2016 Iron deficiency anemia 2014 Vitamin B12 deficiency 12/29/2013 Vitamin D deficiency 12/29/2013 GERD (gastroesophageal reflux disease) 4 Overview (03/01/2024): EGD 10/03/2015, normal upper GI tract findings on treatment with omeprazole 20 mg twice a day. Hypothyroidism 08/03/2013 Major depression 08/03/2013 Overview (03/01/2024): Follow[facility] with [facility] Encounters Date Type Department Care Team Description 05/02/2025 Telephone Adult Medicine [address] [phone] Harjit Quick MD 04/29/2025 Telephone Adult Medicine [address] [phone] Harjit Quick MD 03/31/2025 1:30 PM EST Lab Draw Station - [address] Flank pain, unspecified laterality; Bilateral flank pain; Anemia, unspecified type; Hypothyroidism, unspecified type 03/31/2025 12:39 PM EST - 03/31/2025 11:59 PM EST Hospital Encounter Radiology Department - [address] [phone] Flank pain, unspecified laterality; Bilateral flank pain Discharge Disposition: Home or Self Care 03/31/2025 Results Follow-Up [address] [phone] Harjit Quick MD 03/29/2025 11:30 AM EST Office Visit [address] [phone] Harjit Quick MD Hypothyroidism, unspecified type (Primary Dx); Primary hypertension; Anemia, unspecified type; Class 1 obesity due to excess calories with serious comorbidity and body mass index (BMI) of 30.0 to 30.9 in adult; Flank pain, unspecified laterality; Bilateral flank pain 03/14/2025 4:30 PM EST Office Visit [address] [phone] Rahul Sanchez MD Hypothyroidism, unspecified type (Primary Dx); Essential hypertension from Last 3 Months Immunizations Immunization Administration Dates Next Due Influenza Quadravalent, MDCK , 0.5ml, preservative free (Flucelvax) 6mo and older 03/31/2023,04/15/2022,05/24/2020,2019,01/21/2018 Influenza trivalent, 0.5mL, preservative free (Fluarix; FluLaval; Fluzone) ages 6mo and older (Afluria) 3 years and older 01/26/2024,02/26/2016 Tdap Tetanus diptheria acell ular pertussis (Boostrix; Adacel) 7yo and older 12/27/2013 Surgical History Surgery Date Site/Laterality Comments CHOLECYSTECTOMY 10/2013 UPPER GASTROINTESTINAL ENDOSCOPY 10/03/2059 Visually normal on omeprazole 20 mg twice a day; random duodenal biopsies: normal. COLONOSCOPY 03/18/2016 Within normal limits to cecum CHOLECYSTECTOMY BACK SURGERY 11/25/2022 Left L5-S1 minimally invasive discectomy, Dr. Quintana TOTAL KNEE ARTHROPLASTY 05/12/2022 - 05/11/2023 Left Medical History Medical History Date Comments Hypothyroidism 08/03/2013 Major depression 08/03/2013 GERD (gastroesophageal reflux disease) 08/03/2013 Vitamin B12 deficiency 12/29/2013 Vitamin D deficiency 12/29/2013 Iron deficiency anemia 2014 Cervical disc disease 06/22/2019 Constipation, chronic 05/28/2021 Followed b y [facility] Anxiety High blood pressure Family History Medical History Relation Name Comments Diabetes Father Breast cancer Sister 50's Relation Name Status Comments Father Alive dm, htn Mother dm, htn, renal failure Sister 50's Alive Social History Tobacco Use Types Packs/Day Years Used Date Smoking Tobacco: Never Smokeless Tobacco: Never Tobacco Cessation:Counseling Given: Not Answered Alcohol Use Standard Drinks/Week Comments No 0 [...] care for your loved ones. For example, children's service supervisor or elderly care for an older adult? [...] Orientation Straight 08/27/2024 1: 07 PM EDT Last Filed Vital Signs Vital Sign Reading Time Taken Comments Blood Pressure 134/80 03/29/2025 11:23 AM EST Pulse 83 03/29/2025 11:23 AM EST Temperature 36.6 C (97.9 F) 03/29/2025 11:23 AM EST Respiratory Rate 12 03/14/2025 4:34 PM EST Oxygen Saturation 99% 01/12/2025 2:58 PM EDT Inhaled Oxygen Concentration - - Weight 69.9 kg (154 lb) 03/29/2025 11:23 AM EST Height 152.4 cm (5') 03/29/2025 11:23 AM EST Body Mass Index 30.08 03/29/2025 11:23 AM EST Plan of Treatment Upcoming Encounters Date Type Department Care Team (Late st Contact Info) Description 05/04/2025 10:00 AM EST Office Visit [address] [phone] Latoya Dow PA [address] [place] [address] 06/14/2025 4:30 PM EST Office Visit Adult Medicine [facility] [address] [place] [phone] Harjit Quick MD [address] [facility] [place] [address] Health Maintenance Due Date Last Done Comments Breast Cancer Screening 08/27/2019 08/26/2017 COVID-19 Vaccine ( - season) 2025 10/25/2020, 10/06/2020 Influenza Vaccine (#1) 2025 , 03/31/2023, 04/15/2022, Additional history exists DTaP,Tdap,and Td Vaccines (2 - Td or Tdap) 05/12/2025 12/27/2013 Postponed from 12/28/2023 (Patient Refused) Hepatitis B Vaccines (1 of 3 - 19+ 3-dose series) 05/12/2025 Postponed from 1988 (Patient Refused) Pneumococcal Vaccine: 50+ Years (1 of 1 - PCV) 05/12/2025 Postponed from 2019 (Patient Refused) Zoster Vaccines (1 of 2) 05/16/2025 Pos tponed from 2019 (Patient Refused) Social Influencers of Health Screening 06/21/2025 06/21/2024 Hypertension/CHF/CAD Annual BMP Blood Test 03/31/2026 03/31/2025, 12/10/2024, 07/05/2024, Additional history exists Cervical Cancer Screening: HPV 05/08/2026 05/08/2021 Colorectal Cancer Screening: Colonoscopy 06/16/2028 06/16/2018 Cholesterol Screening (Lipid Panel) 07/05/2029 07/05/2024, 01/21/2023 RSV Immunization Adult Patients (1 - 1-dose 75+ series) 2044 Depression Screening Completed 06/21/2024, 01/26/20 24 HIV Screening Completed 07/05/2024 Hepatitis C Screening Completed 07/05/2024, 024 HIB Vaccines Aged Out No longer eligi ble based on patient's age to complete this topic HPV Vaccines Aged Out No longer eligi ble based on patient's age to complete this topic Hepatitis A Vaccines Aged Out No long er eligible based on patient's age to complete this topic IPV Vaccines Aged Out No longer eligi ble based on patient's age to complete this topic MMR Vaccines Aged Out No longer eligi ble based on patient's age to complete this topic Meningococcal ACWY Vaccine Aged Out N o longer eligible based on patient's age to complete this topic Meningococcal B Vaccine Aged Out No l onger eligible based on patient's age to complete this topic RSV Immunization Patients Under 20 months Aged Out No longer eligible based on patient's age to complete this topic Varicella Vaccines Aged Out No longer eligible based on patient's age to complete this topic Procedures Procedure Name Priority Date/Time Associated Diagnosis Comments CBC WITH AUTO DIFFERENTIAL Routine 03/31/2025 1:05 PM EST Anemia, unspecified type THYROID STIMULATING HORMONE WITH REFLEX TO FREE T4 AND FREE T3 Routine 03/31/2025 1:05 PM EST Hypothyroidism, unspecified type CBC AND DIFFERENTIAL Routine 03/31/2025 1:05 PM EST Anemia, unspecified type COMPREHENSIVE METABOLIC PANEL Routine 03/31/2025 1:05 PM EST Flank pain, unspecified laterality Bilateral flank pain US RETROPERITONEAL COMPLETE Routine 03/31/2025 12:55 PM EST Flank pain, unspecified laterality Bilateral flank pain HEPATITIS PANEL, ACUTE WITH REFLEX TO CONFIRMATION Routine 07/05/2024 10:05 AM EST Annual physical exam HIV 1, 2 ANTIBODY, P24 ANTIGEN WITH REFLEX TO DIFFERENTIATION Routine 07/05/2024 10:05 AM EST Annual physical exam LIPID PANEL WITH REFLEX TO DIRECT LDL Routine 07/05/2024 10:05 AM EST Annual physical exam HM DEPRESSION SCREENING Routine 01/26/2024 HM HPV Routine 05/08/2021 HM COLONOSCOPY Routine 06/16/2018 SCR MAMMO BI INCL CAD Routine 08/26/2017 3:20 PM EDT Encounter for screening mammogram for malignant neoplasm of breast from Last 3 Months or Most Recently Relevant to Health Maintenance Results * Thyroid stimulating hormone with reflex to free t4 and free t3 (03/31/2025 1:05 PM EST) TSH 0.96 0.40 - 4.00 mcIU/mL 03/31/2025 4:47 PM [facility] Blood Venous blood specimen / Unknown Venipuncture / Unknown 03/31/2025 1:05 PM EST 03/31/2025 1:05 PM EST Harjit Quick MD LAB BLOOD ORDERABLES Final Result [facility] [address] [place] [address], [place] [phone] * (ABNORMAL) CBC auto differential (03/31/2025 1:05 PM EST) Pathologist [facility] WBC 6.0 4.8 - 10.8 K/mcL LAB HEMETOLOGY METHOD 03/31/2025 3:07 PM [facility] RBC 4.00 3.80 - 4.80 M/mcL LAB HEMETOLOGY METHOD 03/31/2025 3:07 PM [facility] Hemoglobin 11.4(L) 11.5 - 16.0 g/dL LAB HEMETOLOGY METHOD 03/31/2025 3:07 PM [facility] Hematocrit 35.4 35.0 - 47.0 % LAB HEMETOLOGY METHOD 03/31/2025 3:07 PM [facility] MCV 88.3 79.0 - 98.0 FL LAB HEMETOLOGY METHOD 03/31/2025 3:07 PM [facility] MCH 28.4 27.0 - 32.0 pcg LAB HEMETOLOGY METHOD 03/31/2025 3:07 PM [facility] MCHC 32.2 32.0 - 37.0 g/dL LAB HEMETOLOGY METHOD 03/31/2025 3:07 PM [facility] RDW 14.2 11.0 - 15.0 % LAB HEMETOLOGY METHOD 03/31/2025 3:07 PM [facility] Platelets 331 130 - 400 K/mcL LAB HEMETOLOGY METHOD 03/31/2025 3:07 PM [facility] MPV 11.1(H) 7.0 - 11.0 FL LAB HEMETOLOGY METHOD 03/31/2025 3:07 PM [facility] NRBC 0.0 <1.0 % LAB HEMETOLOGY METHOD 03/31/2025 3:07 PM [facility] NRBC Absolute 0.00 <0.10 K/mcL LAB HEMETOLOGY METHOD 03/31/2025 3:07 PM [facility] Neutrophils Relative 63.1 % LAB HEMETOLOGY METHOD 03/31/2025 3:07 PM [facility] Lymphocytes Relative 24.0 % LAB HEMETOLOGY METHOD 03/31/2025 3:07 PM [facility] Monocytes Relative 9.5 % LAB HEMETOLOGY METHOD 03/31/2025 3:07 PM [facility] Eosinophils Relative 2.5 % LAB HEMETOLOGY METHOD 03/31/2025 3:07 PM [facility] Basophils Relative 0.7 % LAB HEMETOLOGY METHOD 03/31/2025 3:07 PM [facility] Immature Granulocytes Relative 0.2 % LAB HEMETOLOGY METHOD 03/31/2025 3:07 PM [facility] Neutrophils Absolute 3.81 1.50 - 7.00 K/mcL LAB HEMETOLOGY METHOD 03/31/2025 3:07 PM EST [facility] Lymphocytes Absolute 1.45 1.00 - 5.00 K/mcL LAB HEMETOLOGY METHOD 03/31/2025 3:07 PM EST [facility] Monocytes Absolute 0.57 0.20 - 1.00 K/mcL LAB HEMETOLOGY METHOD 03/31/2025 3:07 PM EST [facility] Eosinophils Absolute 0.15 0.00 - 0.50 K/[facility] HEMETOLOGY METHOD 03/31/2025 3:07 PM EST [facility] Basophils Absolute 0.04 0.00 - 0.20 K/[facility] HEMETOLOGY METHOD 03/31/2025 3:07 PM [facility] Immature Granulocytes Absolute 0.01 0.00 - 0.03 K/[facility] HEMETOLOGY METHOD 03/31/2025 3:07 PM [facility] Blood Venous blood specimen / Unknown Venipuncture / Unknown 03/31/2025 1:05 PM EST 03/31/2025 1:05 PM EST us Harjit Quick MD LAB BLOOD ORDERABLES Final Result [facility] [address] [place] [address], * Comprehensive metabolic panel (03/31/2025 1:05 PM EST) Sodium 140 133 - 145 mmol/L 03/31/2025 4:49 PM EST [facility] Potassium 3.8 3.5 - 5.5 mmol/L 03/31/2025 4:49 PM [facility] Chloride 104 96 - 110 mmol/L 03/31/2025 4:49 PM [facility] CO2 25 21 - 32 mmol/L 03/31/2025 4:49 PM EST [facility] Anion Gap 11 3 - 11 03/31/2025 4:49 PM [facility] Glucose 81 70 - 100 mg/dL 03/31/2025 4:49 PM [facility] BUN 17 5 - 25 mg/dL 03/31/2025 4:49 PM [facility] Creatinine 0.86 0.50 - 1.10 mg/dL 03/31/2025 4:49 PM [facility] eGFR 79 >=60 mL/min/1. 73m2 03/31/2025 4:49 PM [facility] Comment:Calculation based on the Chronic Kidney Disease Epidemiology Collaboration (CKD-EPI) equation refit without adjustment for race. BUN/Creatinine Ratio 19.8 03/31/2025 4:49 PM [facility] Calcium 9.2 8.5 - 10.5 mg/dL 03/31/2025 4:49 PM [facility] AST (SGOT) 22 10 - 42 unit/L 03/31/2025 4:49 PM [facility] ALT (SGPT) 21 10 - 60 unit/L 03/31/2025 4:49 PM [facility] Alkaline Phosphatase 101 42 - 121 unit/L 03/31/2025 4:49 PM [facility] Total Protein 6.8 6.0 - 8.0 g/dL 03/31/2025 4:49 PM [facility] Albumin 4.2 3.2 - 5.0 g/dL 03/31/2025 4:49 PM [facility] Total Bilirubin 0.6 0.0 - 1.4 mg/dL 03/31/2025 4:49 PM [facility] Blood Venous blood specimen / Unknown Venipuncture / Unknown 03/31/2025 1:05 PM EST 03/31/2025 1:05 PM EST us Harjit Quick MD LAB BLOOD ORDERABLES Final Result [facility] [address] [place] [address], [place] [phone] * US Retroperitoneal Complete (03/31/2025 12:55 PM EST) Anatomical Region Laterality Modality Body Ultrasound 03/31/2025 4:47 PM EST Impressions 03/31/2025 4:50 PM EST No hydronephrosis or evidence of nephrolithiasis. -------- FINAL REPORT -------- Dictated By: Christi Mccurdy Dictated Date: 03/31/2025 16:47 ET Assigned Physician: Christi Mccurdy Reviewed and Electronically Signed By: Christi Mccurdy Signed Date: 03/31/2025 16:50 ET Workstation ID: [id number] Transcribed By: Self Edit Transcribed Date: 03/31/2025 16:47 ET Narrative 03/31/2025 4:50 PM EST EXAM: Ultrasound retroperitoneal HISTORY: Bilateral flank pain. Evaluate for kidney stones, pyelonephritis. COMPARISON: Abdominal ultrasound 09/09/2013 FINDINGS: Exam limited by patient body habitus. Kidneys are within normal limits for size measuring 11.8 cm on the right and 10.4 cm on the left in craniocaudad extent. Cortical thickness and echogenicity are within normal limits. No hydronephrosis, focal lesions, or shadowing stones. No perinephric collections. Unable to accurately assess the bladder due to underdistention. No definite intraluminal mass or stone. Both ureteral jets are visualized. Procedure Note Christi Mccurdy MD - 03/31/2025 EXAM: Ultrasound retroperitoneal HISTORY: Bilateral flank pain. Evaluate for kidney stones,pyelonephritis. COMPARISON: Abdominal ultrasound 09/09/2013 FINDINGS: Exam limited by patient body habitus. Kidneys are within normal limits for size measuring 11.8 cm on the rightand 10.4 cm on the left in craniocaudad extent. Cortical thickness andechogenicity are within normal limits. No hydronephrosis, focal lesions,or shadowing stones. No perinephric collections. Unable to accurately assess the bladder due to underdistention. Nodefinite intraluminal mass or stone. Both ureteral jets are visualized. IMPRESSION: No hydronephrosis or evidence of nephrolithiasis. -------- FINAL REPORT -------- Dictated By: Christi Mccurdy Dictated Date: 03/31/2025 16:47 ET Assigned Physician: Christi Mccurdy Reviewed and Electronically Signed By: Christi Mccurdy Signed Date: 03/31/2025 16:50 ET Workstation ID: [id number] Transcribed By: Self Edit Transcribed Date: 03/31/2025 16:47 ET Harjit Quick MD IMG US PROCEDURES Final Res ult * HIV 1,2 antibody, p24 antigen with reflex to differentiation (07/05/2024 10:05 AM EST) HIV Combo AB/AG Negative Negative LAB CHEMISTRY METHOD 07/05/2024 2:23 PM EST [facility] Blood Venous blood specimen / Unknown Venipuncture / Unknown 07/05/2024 10:05 AM EST 07/05/2024 10:05 AM EST Narrative [facility] - 07/05/2024 2:23 PM EST This assay is a 4th generation assay allowing for earlier detection of HIV infection by detecting the presence of the HIV-1 p24 antigen as well as the traditional antibodies to HIV type 1 (including group O) and type 2. Use of a 4th generation assay is the current CDC recommendation for HIV screening. us Harjit Quick MD LAB BLOOD ORDERABLES Final Result [facility] [address] [place] [address], [place] [phone] * Lipid panel with reflex to direct LDL (07/05/2024 10:05 AM EST) Cholesterol 146 0 - 200 mg/dL LAB CHEMISTRY METHOD 07/05/2024 1:35 PM EST [facility] Triglycerides 87 0 - 150 mg/dL LAB CHEMISTRY METHOD 07/05/2024 1:35 PM EST [facility] HDL 40 >=40 mg/dL LAB CHEMISTRY METHOD 07/05/2024 1:35 PM [facility] LDL Calculated 89 0 - 100 mg/dL LAB CHEMISTRY METHOD 07/05/2024 1:35 PM [facility] VLDL Cholesterol Magdi 17.4 mg/dL LAB CHEMISTRY METHOD 07/05/2024 1:35 PM [facility] Non HDL Chol. (LDL+VLDL) 106 <145 mg/dL LAB CHEMISTRY METHOD 07/05/2024 1:35 PM [facility] Chol/HDL Ratio 3.7 0.0 - 4.4 LAB CHEMISTRY METHOD 07/05/2024 1:35 PM [facility] Blood Venous blood specimen / Unknown Venipuncture / Unknown 07/05/2024 10:05 AM EST 07/05/2024 10:05 AM EST us Harjit Quick MD LAB BLOOD ORDERABLES Final Result [facility] [address] [place] [address], [place] [phone] * Hepatitis panel, acute with reflex to confirmation (07/05/2024 10:05 AM EST) Hepatitis B Surface Ag Negative Negative LAB CHEMISTRY METHOD 07/05/2024 2:56 PM EST [facility] Hepatitis A Antibody IgM Negative Negative LAB CHEMISTRY METHOD 07/05/2024 2:56 PM [facility] Hep B Core IgM Negative Negative LAB CHEMISTRY METHOD 07/05/2024 2:56 PM EST [facility] Hepatitis C Antibody Negative Negative LAB CHEMISTRY METHOD 07/05/2024 2:56 PM [facility] Blood Venous blood specimen / Unknown Venipuncture / Unknown 07/05/2024 10:05 AM EST 07/05/2024 10:05 AM EST Harjit Quick MD LAB BLOOD ORDERABLES Final Result [facility] [address] [place] [address], * Depression Screening (01/26/2024) Pathologist [facility] Depression Screening Abstracted [facility] Provider HEALTH MAINTENANCE Final Result * Cervical Cancer Screening: HPV (05/08/2021) Pathologist [facility] Cervical Cancer Screening: HPV Negative, abstracted [facility] Provider HEALTH MAINTENANCE Final Result * Colonoscopy (06/16/2018) Pathologist [facility] Colonoscopy No interpretation , abstracted Anatomical Region Laterality Modality Other [facility] Provider HEALTH MAINTENANCE Final Result * SCR MAMMO BI INCL CAD (08/26/2017 3:20 PM EDT) Anatomical Region Laterality Modality Radiographic Cinthia ging 07/23/2017 3:37 PM EDT Narrative 08/27/2017 9:05 AM EDT This is a summary report. The complete report is available in the patient's medical record. If you cannot access the medical record, please contact the sending organization for a detailed fax or copy. Full field digital screening mammography, reviewed with CAD and compared to previous. The breast tissue is heterogeneously dense, limiting sensitivity. No suspicious mass, architectural distortion or suspicious calcifications are identified. IMPRESSION: : Dense breast tissue, limiting the sensitivity of mammography. No mammographic evidence of malignancy. BIRADS 1-Negative; N. 5 year breast cancer risk assessment 1.7 % Lifetime breast cancer risk assessment 16.9 % Breast cancer risk category Moderate (15% - 20%) Procedure Note Lanny Alegria MD - 04/30/2022 This is a summary report. The complete report is available in thepatient's medical record. If you cannot access the medical record, pleasecontact the sending organization for a detailed fax or copy. Full field digital screening mammography, reviewed with CAD and comparedto previous. The breast tissue is heterogeneously dense, limitingsensitivity. No suspicious mass, architectural distortion or suspiciouscalcifications are identified. IMPRESSION: : Dense breast tissue, limiting the sensitivity of mammography. Nomammographic evidence of malignancy. BIRADS 1-Negative; N. 5 year breast cancer risk assessment 1.7 % Lifetime breast cancer risk assessment 16.9 % Breast cancer risk category Moderate (15% - 20%) Mary Ann Luke MD IMG XR PROCEDURES Final Result from Last 3 Months or Most Recently Relevant to Health Maintenance Additional Health Concerns Infection Onset Date Last Indicated Herpes simplex 07/05/2024 07/05/2024 [place] [id number] [facility] Landscape Mobile PLAN Care Teams Stone Spreader Operator Relationship Specialty Start Date End Date Harjit Quick MD [address] [place] [address] PCP - General Internal Medicine 10/19/24
--- OUTSIDE RECORDS SUMMARY | 2025-05-03 14:07 | XMS_ITS | Encounter Summary ---
Author Organization [facility] [place] [address] Care Team Providers Care Human Relations Manager Name Role Phone Harjit Quick MD Primary Care Provider [phone] Reason for Visit * Reason Onset Date Comments Abdominal Pain 04/29/2025 Nausea 04/29/2025 Encounter Details Date Type Department Care Team ([facility] st Contact Info) Description 04/29/2025 Telephone Adult Medicine [facility] [place] [address] [place], [place] [phone] Harjit Quick MD [address] [place], [place] Social History Tobacco Use Types Packs/Day Years [...] care for your loved ones. For example, child center assistant or elderly care for an older adult? [...] PM EDT documented as of this encounter Progress Notes * Steph Leggett RN - 04/29/2025 12:40 PM EST Pt has epigastric burning for 2 weeks and when she eats she has nausea Pt has no chest pain or SOB, has occasional nausea especially after eating, no vomiting or changes in stool., no black of bloody stools, has not been constipated , no urinary symptoms, he is not dizzy, has constant burning epigastric pain, denies fever Pt to see maria ines dow 05/02 Advised home care following the abd pain Protocol. RN reinforced telephone consultation and advice.Reviewed with the patient the signs and symptoms to watch for that would require immediate attention. If symptoms change, worsen or increase in intensity, to call back immediately. * Lina Lam - 04/29/2025 11:20 AM EST Patient call requires triage: Symptoms patient is presenting: c/o abdominal pain and nausea How long has patient had these symptoms?: 2 weeks For ALL patients calling to schedule any appointment (routine, sick visit, follow up, consult, etc.) in the outpatient setting please ask the following questions: Do you have fever of higher than 101, sore throat with difficulty swallowing or severe shortness ofbreath? no If YES to any of these above symptoms, send a message to triage and do not book. Red dot. If no, an audio or video visit should be booked. Have you had close contact with someone with Coronavirus in the last 14 days? no Have you traveled abroad? no Have you traveled recently to another state outside of [place], [place], [place], [place], [place], [place], [place]? no o If yes, did you quarantine for 14 days or have a negative covid test? no If yes to any of the above, patient is not to be scheduled in office until after 14 day quarantine or negative covid test. If pain or injury related was it due to an accident at work or from a motor vehicle accident? If yes, date of accident/Injury: No If yes, gather 3rd green party insurance information Third Constitution Party Information: not applicable PCP: Harjit Quick MD Payor: [employer] PLAN / Plan: [employer] [place] [employer] / Product Type: *No Product type* / documented in this encounter Plan of Treatment Upcoming Encounters Date Type Department Care Team (Late st Contact Info) Description 05/04/2025 10:00 AM EST Office Visit Adult Medicine [address] [phone] Latoya Dow PA [address] [place], [place] 06/14/2025 4:30 PM EST Office Visit Adult Medicine [address] [phone] Harjit Quick MD [address] [place] [address] documented as of this encounter Visit Diagnoses Not on filedocumented in this encounter Additional Health Concerns Infection Onset Date Last Indicated Resolved Time Herpes simplex 07/05/2024 07/05/2024 Assessment Noted Time PHQ-9 Depression Total Score: 3 06/21/19 25 8:27 PM EST documented as of this encounter Care Teams Human Relations Manager Relationship Specialty Start Date End Date Harjit Quick MD [address] [place] [address] PCP - General Internal Medicine 10/19/24 documented as of this encounter
--- OUTSIDE RECORDS SUMMARY | 2025-05-03 14:07 | XMS_ITS | Encounter Summary ---
Author Organization [facility] [place] [address] Care Team Providers Care Director Airport Name Role Phone Harjit Quick MD Primary Care Provider Reason for Visit * Reason Onset Date Comments Abdominal Pain 05/02/2025 Encounter Details Date Type Department Care Team (Late st Contact Info) Description 05/02/2025 Telephone Adult Medicine [facility] [address] [place], [place] [phone] Harjit Quick MD [address] [facility] [place] Social History Tobacco Use Types Packs/Day [...] care for your loved ones. For example, residential child care counselor or elderly care for an older adult? [...] as of this encounter Progress Notes * Jose Loyola RN - 05/02/2025 1:59 PM EST Rescheduled for 05/04 advised for any new or worsening sx or concerns to go to er for evaluation. * Lina Lam - 05/02/2025 11:41 AM EST Patient is asking to r/s her appt on 05/02/25 for abdominal pain documented in this encounter Plan of Treatment Upcoming Encounters Date Type Department Care Team (Late st Contact Info) Description 05/04/2025 10:00 AM EST Office Visit [address] [phone] Latoya Dow PA [address] [place] [address] 06/14/2025 4:30 PM EST Office Visit [address] [phone] Harjit Quick MD [address] [place] [address] documented as of this encounter Visit Diagnoses Not on filedocumented in this encounter Additional Health Concerns Infection Onset Date Last Indicated Resolved Time Herpes simplex 07/05/2024 07/05/2024 Assessment Noted Time PHQ-9 Depression Total Score: 3 06/21/19 8:27 PM EST documented as of this encounter Care Teams Director Airport Relationship Specialty Start Date End Date Harjit Quick MD [address] [place] [address] PCP - General Internal Medicine 10/19/24 documented as of this encounter
== END 2025-05-03 13:23 | disposition home or self-care (01) ==
LOC: HO.HSM 13:05
PROVIDERS: Visit Provider Registered Nurse
DX: G43.909 Migraine, unspecified, not intractable, without status migrainosus (principal)
CPT/HCPCS: 99214

== ENCOUNTER → 2025-05-03 13:04 | Outpatient (BNVA) | payer OTHER, SELFPAY | PROVIDERS: Visit Provider Registered Nurse | DX: G43.909 Migraine, unspecified, not intractable, without status migrainosus (principal); Z79.899 Other long term (current) drug therapy | CPT/HCPCS: 99212 ==